=== PATIENT | male | born 1950 | race Caucasian/White ===

== ENCOUNTER 2017-02-13 17:53 | Emergency (ER) | payer OTHER ==
[2017-02-13 18:32] VITALS: BP 141/88
--- NOTE | 2017-02-13 19:01 | RAD ---
INDICATION: Nail puncture wound COMPARISON: None TECHNIQUE: AP, lateral, and oblique views were obtained. FINDINGS: There are no acute bony findings. There is advanced osteoarthritis about the first MTP joint with a mild hallux valgus deformity. There is interphalangeal arthritic change about the great toe as well. There is arthritic change about the midfoot and the tibiotalar joint. There is no foreign body.. IMPRESSION: ARTHRITIC CHANGES. NO ACUTE BONY CHANGE
[2017-02-13] MEDS ORDERED: Tetan/Diph/Pertus SYR(Tdap)* 0.5 ML SYR(BOOSTRIX) use SYR IM ONE (19:09)
--- NOTE | 2017-02-13 20:12 | UC ---
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 ENTERED MIDFOOT. UNSURE OF LAST TETANUS STATUS. - History of Current Complaint Chief Complaint: UCLowerExtremity Stated Complaint: STEPPED ON A NAIL Time Seen by Provider: 02/13/17 18:34 Hx Obtained From: Patient Onset/Duration: Sudden Onset, Lasting Hours, Still Present Severity Initially: Mild Severity Currently: Mild Pain Intensity: 0 Pain Scale Used: 0-10 Numeric Aggravating Factor(s): Standing, Ambulation Able to Bear Weight: Yes - Risk Factors Gout Risk Factors: Negative DVT Risk Factors: Negative Septic Arthritis Risk Factor: Negative - Allergies/Home Medications Allergies/Adverse Reactions: Allergies Allergy/AdvReac Type Severity Reaction Status Date / Time No Known Allergies Allergy Verified 02/13/17 18:33 Home Medications: Home Medications Allopurinol TAB* [Zyloprim 100 MG TAB*] 100 mg PO DAILY 02/13/17 [History Confirmed 02/13/17] PMH/Surg Hx/FS Hx/Imm Hx Previously Healthy: Yes - Surgical History Surgical History: Yes Surgery Procedure, Year, and Place: TONSILECTOMY - Family History Known Family History: Positive: Unknown - pt is adopted - Social History Occupation: Employed Full-time Lives: With Family Alcohol Use: Occasionally Substance Use Type: None Smoking Status (MU): Never Smoked Tobacco Have You Smoked in the Last Year: No - Immunization History Most Recent Tetanus Shot: unknown Review of Systems Constitutional: Negative Skin: Other - PUNCTURE WOUND LEFT FOOT Eyes: Negative ENT: Negative Respiratory: Negative Cardiovascular: Negative Gastrointestinal: Negative Genitourinary: Negative Motor: Negative Neurovascular: Negative Musculoskeletal: Arthralgia - LEFT FOOT, Myalgia - LEFT FOOT Neurological: Negative Psychological: Negative All Other Systems Reviewed And Are Negative: Yes Physical Exam Triage Information Reviewed: Yes Appearance: Well-Appearing, No Pain Distress, Well-Nourished Vital Signs: Initial Vital Signs Temp 97.3 F 02/13/17 18:25 Pulse 80 02/13/17 18:25 Resp 20 02/13/17 18:25 BP 141/88 02/13/17 18:25 Pulse Ox 96 02/13/17 18:25 Vital Signs Reviewed: Yes Eye Exam: Normal ENT Exam: Normal ENT: Positive: Normal ENT inspection, Hearing grossly normal, TMs normal Dental Exam: Normal Neck exam: Normal Neck: Positive: Supple, Nontender, No Lymphadenopathy Respiratory Exam: Normal Respiratory: Positive: Chest non-tender, Lungs clear, Normal breath sounds, No respiratory distress Cardiovascular Exam: Normal Cardiovascular: Positive: RRR, No Murmur, Pulses Normal Abdominal Exam: Normal Abdomen Description: Positive: Nontender, No Organomegaly Musculoskeletal Exam: Normal Neurological Exam: Normal Psychological Exam: Normal Skin: Positive: Other - PUNCTURE WOUND LEFT FOOT Lower Extremity Course/Dx - Differential Dx/Diagnosis Differential Diagnosis/HQI/PQRI: Foreign Body, Fracture (Closed), Infection, Sprain, Strain Provider Diagnoses: LEFT FOOT PUNCTURE WOUND Discharge - Discharge Plan Condition: Stable Disposition: HOME Prescriptions: Ciprofloxacin TAB* [Cipro 500 MG TAB*] 500 mg PO BID #8 tab Patient Education Materials: Puncture Wound (ED) Referrals: Amber Cosme MD [Primary Care Provider] -
== END 2017-02-13 19:20 | disposition home or self-care (01) ==
LOC: UCEAST 17:53
DX: S91.342A Puncture wound with foreign body, left foot, initial encounter (principal); W45.0XXA Nail entering through skin, initial encounter; Z23 Encounter for immunization
CPT/HCPCS: 90471; 90715; 99212; G0463

== ENCOUNTER 2017-05-02 18:36 | Emergency (ER) | payer OTHER ==
[2017-05-02 18:49] VITALS: BP 159/98
--- NOTE | 2017-05-02 19:38 | UC ---
Back Pain HPI - HPI Summary HPI Summary: 66 y/o male PMHX of Gout, HTN presents to the urgent care c/o LF side back pain and LF wrist pain for the past week. 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 Pain is 8/10. Back pain is localized on the left lateral side. LF wrist pain is associated with swelling and radiates to his upper arm. He has been taking some Tylenol with Codeine he bought OTC in [place] w/o any improvement of pain and Indomethacin and Allupironol for his gout. Pt denies urinary or fecal incontinence, saddle anesthesia, numbness or tingling over the lower or upper extremities, fever, SOB, chest pain, N/V/D. urinary symptoms. - History of Current Complaint Chief Complaint: UCBackPain Stated Complaint: BACK AND ARM PAIN Time Seen by Provider: 05/02/17 19:08 Hx Obtained From: Patient Onset/Duration: Gradual Onset, Lasting Weeks - 1 week Timing: Constant, Lasting Days - 1 week Severity Initially: Moderate Severity Currently: Severe Pain Intensity: 8 Pain Scale Used: 0-10 Numeric Back Pain: Is Discrete @ - mid back left side Character: Sharp, Spasmodic Aggravating: Movement, Lifting, Bending Alleviating: Rest Associated Signs And Symptoms: Positive: Swelling, Pain with Weight Bearing. Negative: Fever, Weakness, Numbness - of the left wirst, Abdominal Pain, Flank Pain, Bladder Incontinence, Bowel Incontinence - Risk Factors AAA Risk Factors: Negative TAD Risk Factors: Negative Cauda Equina Risk Factors: Negative Epidural Abscess Risk Factors: Negative - Allergies/Home Medications Allergies/Adverse Reactions: Allergies Allergy/AdvReac Type Severity Reaction Status Date / Time No Known Allergies Allergy Verified 02/13/17 18:33 Home Medications: Home Medications Colchicine* [Colcrys*] 0.6 mg PO DAILY 05/02/17 [History Confirmed 05/02/17] Indomethacin CAP* [Indocin CAP*] 50 mg PO TID PRN 05/02/17 [History Confirmed ] PMH/Surg Hx/FS Hx/Imm Hx Previously Healthy: Yes Other Endocrine History: GOUT Cardiovascular History: Hypertension - Surgical History Surgical History: Yes Surgery Procedure, Year, and Place: TONSILECTOMY - Family History Known Family History: Positive: Unknown - pt is adopted - Social History Occupation: Employed Full-time Lives: With Family Alcohol Use: Daily Substance Use Type: None Smoking Status (MU): Never Smoked Tobacco Have You Smoked in the Last Year: No - Immunization History Most Recent Tetanus Shot: unknown Review of Systems Constitutional: Negative Skin: Negative Eyes: Negative ENT: Negative Respiratory: Negative Cardiovascular: Negative Gastrointestinal: Negative Genitourinary: Negative Motor: Negative Neurovascular: Negative Musculoskeletal: Other: - back pain and LF wrist pain Neurological: Negative Psychological: Negative Is Patient Immunocompromised?: No All Other Systems Reviewed And Are Negative: Yes Physical Exam Triage Information Reviewed: Yes Completion Of Physical Exam Limited Due To: Extremis Appearance: No Pain Distress, Well-Nourished Vital Signs: Initial Vital Signs Temp 99.1 F 05/02/17 18:42 Pulse 59 05/02/17 18:42 Resp 18 05/02/17 18:42 BP 159/98 05/02/17 18:42 Pulse Ox 99 05/02/17 18:42 Vital Signs Reviewed: Yes Eye Exam: Normal Eyes: Positive: Conjunctiva Clear - PERRLA, EOMI, fundi grossly normal ENT Exam: Normal ENT: Positive: Normal ENT inspection, Hearing grossly normal, Pharynx normal, TMs normal Neck exam: Normal Neck: Positive: Supple, Nontender, No Lymphadenopathy Respiratory Exam: Normal Respiratory: Positive: Chest non-tender, Lungs clear, Normal breath sounds Cardiovascular Exam: Normal Cardiovascular: Positive: RRR, No Murmur, Pulses Normal, Brisk Capillary Refill Abdominal Exam: Normal Abdomen Description: Positive: Nontender, No Organomegaly, Soft, CVA Tenderness (L). Negative: CVA Tenderness (R) Bowel Sounds: Positive: Present Musculoskeletal Exam: Normal Musculoskeletal: Positive: Strength Intact, ROM Intact, No Edema, Other: - Wrist : the L wrist is without obvious asymmetry or deformity when compared to the R, warmth to touch with moderate swelling. No bony crepitus . No scaphoid fullness or tenderness to direct palpation or axial load. Decreas ROM due to pain. Motor/sensory function of ulnar, radial, median nerves intact. Ulnar and radial pulses intact. Negative Phalens/Tinels sign . Negative Filkelstein test. BACK: Patient walked into the urgent care room with symmetric ambulation, mild limping, able to bear weight. No signs of trauma, Point tenderness at the lef side of back at the level of T12-L1, , no flank ecchymosis . No sacroiliac notch tenderness, No saddle anesthesia.ROM: limited due to pain. Straight Leg Raise: unable to perform due to pain. Patellar reflexes: brisk, symmetric Muscle strength lower extremities. Dorsiflexion/ plantar flexion of ankles. walk. Lower extremities: Femoral, popliteal, posterior tibial, and dorsalis pedis pulses WNL, sensation WNL Neurological Exam: Normal Neurological: Positive: Alert Psychological Exam: Normal Skin: Positive: Other - Left side of back with 3 lipomas about 1cm in size. mildly tendr to palaption.Movable Back Pain Course/Dx - Course Course Of Treatment: 66 y/o male PMHX of Gout, HTN presents to the urgent care c /o of left side back pain and LF wrist pain for the past week. 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 Pain is 8/10. Back pain is localized on the left lateral side. LF wrist pain is associated with swelling and radiates to his upper arm.He has been taking some Tylenol with Codeine he bought OTC in [place] w/o any improvement of pain and Indomethacin and Allupironol for his gout. Pt denies urinary or fecal incontinence, saddle anesthesia, numbness or tingling over the lower or upper extremities, fever, SOB , chest pain, N/V/D. urinary symptoms. HX obtained. UA ordered:negative. Thoracolumbar X-ray ordered,Impression:Multilevel degenerative changes with osteophyte formation. no changes when compared with CT done in 2016. LF wrist X -say: Degenerative changes with narrowing of the carpal joints. Pt with Degenerative Disc disease , Osteroarthritis and Hx of Gout. Pt given Toradol IM inj and Prednisone 60mg PO for pain. Pt tolerated well IM inj. UA ordered to r/o kidney stones. UA: negative. Pain decrease to 4/10. Pt also has 3 small lipomas on the left side of his back where pain is elecited. Pt Rx Prednisone taper dose, Pt Advised to start taking his Indomethacin PO to alleviate pain. RX Felxeril PO for back spasm, amd Omeprazole PO for GI protection.I discussed all the findings and test results with the patient. Patient was instructed to f/ u with his Orhtopedic Dr Jacobsen for further evaluation and treatment.Pt BP elevated today, Pt advised to decrese salt in his diet , monitor his BP and f/u with his PCP for further management. Plan of care was discussed with the patient and understands and agrees. All questions were answered at patient satisfaction. There were no further complaints or concerns. - Differential Dx/Diagnosis Differential Diagnosis/HQI/PQRI: Arthritis, Cauda Equina Syndrome, Compressive Cord Syndrome, Fracture, Herniated Disc, Renal Colic, Strain, Sprain, Other - GOUT, kodney stone Provider Diagnoses: 1-Degenerative disc disease. 2-Acute back pain. 3-LF wrist pain. 4-Gout. 5-Lipoma. 6-Uncontrolled HTN Discharge - Discharge Plan Condition: Stable Disposition: HOME Prescriptions: Cyclobenzaprine TAB* [Flexeril 10 MG TAB*] 10 mg PO TID PRN #14 tab PRN Reason: Spasms - Back Omeprazole CAP* [Prilosec CAP* 20 MG] 20 mg PO DAILY #30 cap. predniSONE TAB* [Deltasone TAB*] 20 mg PO DAILY #8 tab Patient Education Materials: Osteoarthritis (ED), Gout (ED), Acute Low Back Pain (ED), Degenerative Disc Disease (ED), Lipoma (ED) Referrals: Amber Cosme MD [Primary Care Provider] - 1 Week Jonathan LION,Santy Ramirez [Medical Doctor] - 1 Week Additional Instructions: 1-Please start taking Indometacin TID you have at home directed to alleviate pain and swelling, as well as your Colchicine for your Gout. Take omeprazole Po as indicted for GI protection. 2-Take flexeril PO as directed to alleviate back spasm and the prednisone PO as indicated 3- Please f/u with Orthopedic DR Castillo in 1 week is not improvement of symptoms for further evaluation and treatment. 4- Please f/u witj your PCP for further evaluation and treatment on your gout. 4- Your BP today is elevated, please decrease salt in your diet, monitor your BP , if it continues to be elevated please f/y with your PCP for further management.
[2017-05-02] MEDS ORDERED: Ketorolac INJ* 60 MG/2 ML VIAL IM ONE (20:17)
--- NOTE | 2017-05-02 20:55 | RAD ---
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 TECHNIQUE: 3 views of the thoracic spine were obtained. FINDINGS: On the AP view there is mild curvature of the thoracic and upper lumbar spine, dextroconvex at the T11 level and levoconvex at the L2 level. On the sagittal view the vertebral bodies are appropriately aligned. Degenerative changes include loss of intervertebral disc height at multiple levels as well as osteophyte formation, some bridging. Appearance has not changed substantially when compared to the previous CT examination. IMPRESSION: Multilevel degenerative changes not significantly different from the July 01, 2016 CT examination.
--- NOTE | 2017-05-02 20:58 | RAD ---
INDICATION: Left wrist pain after a landscaping COMPARISON: Similar radiograph dated January 21, 2012 TECHNIQUE: 3 views left wrist. REPORT: Degenerative changes of the left wrist include narrowing of the radiocarpal joint and sclerotic change of the distal articulating surface of the radius. There is bony proliferation at the radial ulnar joint. There is narrowing of the intercarpal and carpometacarpal joints. Degenerative changes of the left thumb trapezium metacarpal joint include sclerotic change and mild bony remodeling of the articulating services. The bones are otherwise intact and appropriately aligned. IMPRESSION: Degenerative changes involving the left wrist as described above, slightly progressed when compared to the January 21, 2012 radiograph. If the patient's symptoms persist, follow-up imaging is recommended.
[2017-05-02] MEDS ORDERED: predniSONE TAB* 20 MG PO ONE (21:21)
[2017-05-02] MEDS ORDERED: Cyclobenzaprine TAB* 10 MG PO ONE (21:21)
== END 2017-05-02 21:45 | disposition home or self-care (01) ==
LOC: UCEAST 18:36
DX: M54.6 Pain in thoracic spine (principal); M51.35 Other intervertebral disc degeneration, thoracolumbar region; M25.532 Pain in left wrist; M10.00 Idiopathic gout, unspecified site; D17.9 Benign lipomatous neoplasm, unspecified; I10 Essential (primary) hypertension
CPT/HCPCS: 72080; 81003; 96372; 99212; A9270-GY; G0463; J1885; J7512

== ENCOUNTER 2017-05-17 06:12 | Emergency (ER) | payer OTHER ==
[2017-05-17] MEDS ORDERED: Famotidine IV* 10 MG/ML 2 ML (20 mg) IV ONE (07:43)
[2017-05-17] MEDS ORDERED: Ondansetron INJ* 2 MG/ML VIAL IV ONE (07:43)
[2017-05-17] MEDS: NS 0.9% 1000 ML* 2,000 ML IV ONE ×2 (08:21→09:39)
--- NOTE | 2017-05-17 08:39 | RAD ---
Indication: Abdominal pain. Flat and upright views of the abdomen demonstrates no free air. Colon is filled with stool. No dilated loops of bowel noted. IMPRESSION: No free air or obstruction is noted.
[2017-05-17 08:48] LABS: Hematocrit 45 % (42-52); Hemoglobin 15.9 g/dl (14.0-18.0); Mean Corpuscular HGB Conc 36 g/dl (31-36); Mean Corpuscular Hemoglobin 33 pg (27-31); Mean Corpuscular Volume 93 fL (80-94); Mean Platelet Volume 8 um3 (7.4-10.4); Red Blood Count 4.81 10^6/ul (4.0-5.4); Red Cell Distribution Width 12 % (10.5-15); White Blood Count 8.7 10^3/ul (3.5-10.8)
[2017-05-17 09:02] LABS: Troponin I 0.01 ng/mL (<0.04)
[2017-05-17 09:03] LABS: Urine Bacteria Absent (Absent); Urine Bilirubin Negative (Negative); Urine Glucose Negative (Negative); Urine Nitrite Negative (Negative)
[2017-05-17 09:04] LABS: Albumin 3.8 g/dL (3.2-5.2); BUN/Creatinine Ratio 13.3 (8-20); C Reactive Protein 78.73 mg/L (< 5.00); Calcium 9.8 mg/dL (8.6-10.3); EGFR African American 72.8 (>60); EGFR Non-African American 56.6 (>60); Globulin 3.3 g/dL (2-4); Magnesium 1.8 mg/dL (1.9-2.7); Total Bilirubin 0.7 mg/dL (0.2-1.0); Total Protein 7.1 g/dL (6.4-8.9)
[2017-05-17] MEDS ORDERED: NS 0.9% 1000 ML* 1,000 ML IV ONE (10:08)
[2017-05-17] MEDS ORDERED: Magnesium Oxide TAB* 400 MG PO ONE (15:09)
[2017-05-17] MEDS ORDERED: Magnesium Oxide TAB* 400 MG ONE (15:16)
[2017-05-17 15:21] VITALS: BP 130/66
--- NOTE | 2017-05-17 16:01 | ED ---
Leah Cintron Alfonso, scribed for Leonides Love MD on 05/17/17 at 0734 . GI/ HPI - HPI Summary HPI Summary: This patient is a 66 year old M presenting to [facility] accompanied by with a chief complaint of diarrhea since 5 days ago. The CC is described as water coming out of me no blood and no mucous. The patient rates the pain 0/10 in severity. Symptoms aggravated by drinking water. Symptoms alleviated by nothing. Patient reports nausea, loss of appetite, weight loss (15 pounds in the last 5 days), and bilateral foot tingling. Patient denies abdominal pain. He traveled to [place] two weeks ago. He denies recent abx use. - History of Current Complaint Chief Complaint: EDGeneral Time Seen by Provider: 05/17/17 07:11 Stated Complaint: UNABLE TO EAT/DRINK Hx Obtained From: Patient Onset/Duration: Started Days Ago - 5, Still Present Timing: Constant Current Severity: Mild Pain Intensity: 0 - /10 Associated Signs and Symptoms: Positive: Other: - Patient reports nausea, loss of appetite, weight loss (15 pounds in the last 5 days), and bilateral foot tingling. Patient denies abdominal pain. Aggravating Factor(s): Liquids Alleviating Factor(s): Nothing - Allergy/Home Medications Allergies/Adverse Reactions: Allergies Allergy/AdvReac Type Severity Reaction Status Date / Time No Known Allergies Allergy Verified 05/17/17 06:22 PMH/Surg Hx/FS Hx/Imm Hx Endocrine/Hematology History: Denies: Hx Diabetes, Hx Thyroid Disease Cardiovascular History: Reports: Hx Hypertension Respiratory History: Denies: Hx Asthma, Hx Chronic Obstructive Pulmonary Disease (COPD) GI History: Denies: Hx Ulcer Musculoskeletal History: Reports: Hx Scoliosis Opthamlomology History: Denies: Hx Legally Blind EENT History: Denies: Hx Deafness - Surgical History Surgery Procedure, Year, and Place: TONSILECTOMY Infectious Disease History: No Infectious Disease History: Reports: Traveled Outside the [place] in Last 30 Days - [place] Denies: Hx Clostridium Difficile, Hx Hepatitis, Hx Human Immunodeficiency Virus (HIV), Hx of Known/Suspected MRSA, Hx Shingles, Hx Tuberculosis, Hx Known/ Suspected VRE, Hx Known/Suspected VRSA, History Other Infectious Disease - Family History Known Family History: Positive: Unknown - pt is adopted - Social History Alcohol Use: Daily Substance Use Type: Reports: None Smoking Status (MU): Never Smoked Tobacco Have You Smoked in the Last Year: No Review of Systems Positive: Diarrhea, Nausea, Other - loss of appetite, weight loss (15 pounds in the last 5 days). Negative: Abdominal Pain Neurological: Other - bilateral foot tingling All Other Systems Reviewed And Are Negative: Yes Physical Exam - Summary Physical Exam Summary: VITAL SIGNS: Reviewed. GENERAL: Patient is an elderly, dehydrated, and nourished male who is lying comfortable in the stretcher. Patient is not in any acute respiratory distress. HEAD AND FACE: No signs of trauma. No ecchymosis, hematomas or skull depressions. No sinus tenderness. EYES: PERRLA, EOMI x 2, No injected conjunctiva, no nystagmus. EARS: Hearing grossly intact. Ear canals and tympanic membranes are within normal limits. MOUTH: Oropharynx within normal limits. Dry oral mucous membranes. NECK: Supple, trachea is midline, no adenopathy, no JVD, no carotid bruit, no c- spine tenderness, neck with full ROM. CHEST: Symmetric, no tenderness at palpation LUNGS: Clear to auscultation bilaterally. No wheezing or crackles. CVS: Regular rate and rhythm, S1 and S2 present, no murmurs or gallops appreciated. ABDOMEN: Soft, non-tender. No signs of distention. No rebound no guarding, and no masses palpated. Bowel sounds are hyperactive. EXTREMITIES: FROM in all major joints, no edema, no cyanosis or clubbing. NEURO: Alert and oriented x 3. No acute neurological deficits. Speech is normal and follows commands. SKIN: Dry and warm Triage Information Reviewed: Yes Vital Signs On Initial Exam: Initial Vitals Temp Pulse Resp BP Pulse Ox 98.3 F 87 14 118/79 97 05/17/17 06:15 05/17/17 06:15 05/17/17 06:15 05/17/17 06:15 05/17/17 06:15 Vital Signs Reviewed: Yes - [place] Coma Scale Coma Scale Total: 15 Diagnostics - Vital Signs Vital Signs Temp Pulse Resp BP Pulse Ox 05/17/17 06:46 68 96 05/17/17 06:44 137/77 05/17/17 06:15 98.3 F 87 14 118/79 97 - Laboratory Lab Results: Lab Results 05/17/17 05/17/17 05/17/17 Range/Units 08:28 08:28 08:28 WBC 8.7 (3.5-10.8) 10^3/ul RBC 4.81 (4.0-5.4) 10^6/ul Hgb 15.9 (14.0-18.0) g/dl Hct 45 (42-52) % MCV 93 (80-94) fL MCH 33 H (27-31) pg MCHC 36 (31-36) g/dl RDW 12 (10.5-15) % Plt Count 199 (150-450) 10^3/ul MPV 8 (7.4-10.4) um3 Neut % (Auto) 67.2 (38-83) % Lymph % (Auto) 19.6 L (25-47) % Nobles % (Auto) 12.6 H (1-9) % Eos % (Auto) 0.2 (0-6) % Baso % (Auto) 0.4 (0-2) % Absolute Neuts (auto) 5.8 (1.5-7.7) 10^3/ul Absolute Lymphs (auto) 1.7 (1.0-4.8) 10^3/ul Absolute Monos (auto) 1.1 H (0-0.8) 10^3/ul Absolute Eos (auto) 0 (0-0.6) 10^3/ul Absolute Basos (auto) 0 (0-0.2) 10^3/ul Absolute Nucleated RBC 0.01 10^3/ul Nucleated RBC % 0.1 Sodium 135 (133-145) mmol/L Potassium 4.0 (3.5-5.0) mmol/L Chloride 104 (101-111) mmol/L Carbon Dioxide 22 (22-32) mmol/L Anion Gap 9 (2-11) mmol/L BUN 17 (6-24) mg/dL Creatinine 1.28 H (0.67-1.17) mg/dL Est GFR ( Amer) 72.8 (>60) Est GFR (Non-Af Amer) 56.6 (>60) BUN/Creatinine Ratio 13.3 (8-20) Glucose 114 H (70-100) mg/dL Lactic Acid (0.5-2.0) mmol/L Calcium 9.8 (8.6-10.3) mg/dL Magnesium 1.8 L (1.9-2.7) mg/dL Total Bilirubin 0.70 (0.2-1.0) mg/dL AST 16 (13-39) U/L ALT 10 (7-52) U/L Alkaline Phosphatase 79 (34-104) U/L Troponin I 0.01 (<0.04) ng/mL C-Reactive Protein 78.73 H (< 5.00) mg/L B-Natriuretic Peptide 38 ( - 100) pg/mL Total Protein 7.1 (6.4-8.9) g/dL Albumin 3.8 (3.2-5.2) g/dL Globulin 3.3 (2-4) g/dL Albumin/Globulin Ratio 1.2 (1-3) Amylase 37 (29-103) U/L Lipase 44 (11.0-82.0) U/L Urine Color Urine Appearance Urine pH (5-9) Ur Specific [place] (1.010-1.030) Urine Protein (Negative) Urine Ketones (Negative) Urine Blood (Negative) Urine Nitrate (Negative) Urine Bilirubin (Negative) Urine Urobilinogen (Negative) Ur Leukocyte Esterase (Negative) Urine WBC (Auto) (Absent) Urine RBC (Auto) (Absent) Ur Squamous Epith Cells (Absent) Urine Bacteria (Absent) Hyaline Casts (Absent) Urine Glucose (Negative) 05/17/17 05/17/17 Range/Units 08:28 08:28 WBC (3.5-10.8) 10^3/ul RBC (4.0-5.4) 10^6/ul Hgb (14.0-18.0) g/dl Hct (42-52) % MCV (80-94) fL MCH (27-31) pg MCHC (31-36) g/dl RDW (10.5-15) % Plt Count (150-450) 10^3/ul MPV (7.4-10.4) um3 Neut % (Auto) (38-83) % Lymph % (Auto) (25-47) % Nobles % (Auto) (1-9) % Eos % (Auto) (0-6) % Baso % (Auto) (0-2) % Absolute Neuts (auto) (1.5-7.7) 10^3/ul Absolute Lymphs (auto) (1.0-4.8) 10^3/ul Absolute Monos (auto) (0-0.8) 10^3/ul Absolute Eos (auto) (0-0.6) 10^3/ul Absolute Basos (auto) (0-0.2) 10^3/ul Absolute Nucleated RBC 10^3/ul Nucleated RBC % Sodium (133-145) mmol/L Potassium (3.5-5.0) mmol/L Chloride (101-111) mmol/L Carbon Dioxide (22-32) mmol/L Anion Gap (2-11) mmol/L BUN (6-24) mg/dL Creatinine (0.67-1.17) mg/dL Est GFR ( Amer) (>60) Est GFR (Non-Af Amer) (>60) BUN/Creatinine Ratio (8-20) Glucose (70-100) mg/dL Lactic Acid 1.4 (0.5-2.0) mmol/L Calcium (8.6-10.3) mg/dL Magnesium (1.9-2.7) mg/dL Total Bilirubin (0.2-1.0) mg/dL AST (13-39) U/L ALT (7-52) U/L Alkaline Phosphatase (34-104) U/L Troponin I (<0.04) ng/mL C-Reactive Protein (< 5.00) mg/L B-Natriuretic Peptide ( - 100) pg/mL Total Protein (6.4-8.9) g/dL Albumin (3.2-5.2) g/dL Globulin (2-4) g/dL Albumin/Globulin Ratio (1-3) Amylase (29-103) U/L Lipase (11.0-82.0) U/L Urine Color Aranza Urine Appearance Cloudy Urine pH 5.0 (5-9) Ur Specific [place] 1.021 (1.010-1.030) Urine Protein 1+(30 mg/dl) H (Negative) Urine Ketones Trace H (Negative) Urine Blood Negative (Negative) Urine Nitrate Negative (Negative) Urine Bilirubin Negative (Negative) Urine Urobilinogen Negative (Negative) Ur Leukocyte Esterase Negative (Negative) Urine WBC (Auto) Trace(0-5/hpf) (Absent) Urine RBC (Auto) Trace(0-2/hpf) (Absent) Ur Squamous Epith Cells Present H (Absent) Urine Bacteria Absent (Absent) Hyaline Casts Present H (Absent) Urine Glucose Negative (Negative) Result Diagrams: 05/17/17 08:28 05/17/17 08:28 Lab Statement: Any lab studies that have been ordered have been reviewed, and results considered in the medical decision making process. - Radiology Abdomen X-Ray Radiology Interpretation Completed By: Radiologist - No free air or obstruction is noted. ED physician has reviewed this radiology report and agrees. - EKG 0814 Cardiac Rate: NL - BPM 65 EKG Rhythm: Sinus Rhythm EKG Interpretation: No ST elevation Re-Evaluation - Re-Evaluation First Eval Re-Evaluation Time: 11:17 Change: Improved Comment: Patient is feeling better. GIGU Course/Dx - Course Assessment/Plan: This patient is a 66 year old M presenting to [facility] accompanied by with a chief complaint of diarrhea since 5 days ago. The CC is described as water coming out of me no blood and no mucous. The patient rates the pain 0/10 in severity. Symptoms aggravated by drinking water. Symptoms alleviated by nothing. Patient reports nausea, loss of appetite, weight loss (15 pounds in the last 5 days), and bilateral foot tingling. Patient denies abdominal pain. He traveled to [place] two weeks ago. He denies recent abx use. An EKG at 0814 reveals NSR at 65 BPM. Abdomen X-ray reveals No free air or obstruction is noted. ED physician has reviewed this radiology report and agrees. Test results with no significant abnormalities except for creatinine of 1.28, possibly secondary to dehydration. Magnesium of 1.8 for which he was given magnesium PO. CRP of 78.7. Urinalysis negative for UTI. C Diff. is negative. Stool culture is pending. In the ED course the patient was given 3 liter IV fluid, Pepcid, and Zofran and his symptoms have resolved. He had one episode of loose stool, but he reports feeling much better. He is able to tolerate PO without nausea and vomiting. I discussed my findings, test results, and finding with the patient. He was instructed to return to the ED if he develops fever, chills, nausea, vomiting. He understands and agrees. The patient is hemodynamically stable, alert and oriented x3. - Diagnoses Differential Diagnoses - Male: Diarrhea, Esophagitis/Gastritis, Gastroenteritis (Bacterial), Gastroenteritis (Viral), Urinary Tract Infection Provider Diagnoses: Nausea vomiting and diarrhea Discharge - Discharge Plan Condition: Stable Disposition: HOME Prescriptions: Ondansetron ODT TAB* [Zofran 4 MG Odt TAB*] 4 mg PO Q6H PRN #10 tab.odt PRN Reason: Vomiting Patient Education Materials: Acute Nausea and Vomiting (ED), Acute Diarrhea (ED ) Referrals: Amber Cosme MD [Primary Care Provider] - 3 Days Additional Instructions: RETURN TO THE EMERGENCY DEPARTMENT FOR CHANGING OR WORSENING SYMPTOMS. The documentation as recorded by the Leah das Alfonso accurately reflects the service I personally performed and the decisions made by Ivan goel Walter, MD.
--- NOTE | 2017-05-19 09:45 | ED ---
Progress - Progress Note Progress Note: Pt's stool cx reveals campylobacter jejuni. Pt reports he's a vegetarian who eats fish - had an undercooked piece of salmon last week which may have triggered this. Has had diarrhea x 6 days. Denies fever, chills, hematochezia, mucous stools, extraintestinal infections. He feels a little better today however still has urgency which he feels may be worse. Admits he's been drinking miriam for nausea daily and kimchee broth in chicken soup. Miriam helps nausea better than zofran and broth feels "good in my stomach". He also has some hand aching since stopping gout medication d/t need to be hydrated while taking. Since he was not able to drink large amounts of water w/ diarrhea , N/V he stopped but restarted colchicine yesterday. Hand is not worse and no redness, fever, or exquisite tenderness - does not feel like a gout flair up. Explained colchicine may increase stools and that this and/or miriam (a digestive agent) may causing his urgency which started today. He has been taking probiotics per PCP - seems to be well with these. W/o danger s/sx, will refrain from anbx tx at this time however pt will keep in touch with PCP and will return to ED is danger s/sx present and/or if he feels dehydrated. Encouraged electrolyte rich beverages to help replace them and prevent bowel spasm. Pt and agree w/ plan. Re-Evaluation - Re-Evaluation First Eval Re-Evaluation Time: 11:17 Change: Improved Comment: Patient is feeling better. Course/Dx - Diagnoses Provider Diagnoses: Nausea vomiting and diarrhea
== END 2017-05-17 15:20 | disposition home or self-care (01) ==
LOC: ED 06:12
DX: R11.2 Nausea with vomiting, unspecified (principal); R19.7 Diarrhea, unspecified; R63.0 Anorexia
CPT/HCPCS: 36415; 74020; 80053; 81003; 81015; 82150; 83605; 83630; 83690; 83735; 83880; 84484; 85025; 86140; 87045; 87046; 87077; 87493; 87899; 93005; 96374; 96375; 99284; J2405

== ENCOUNTER 2017-07-02 12:56 | Inpatient (IN) | payer OTHER ==
[2017-07-02] MEDS ORDERED: NS 0.9% 1000 ML* 1,000 ML IV SCH (14:00)
[2017-07-02 14:08] LABS: Hematocrit 39 % (42-52); Hemoglobin 13.3 g/dl (14.0-18.0); Mean Corpuscular HGB Conc 34 g/dl (31-36); Mean Corpuscular Hemoglobin 31 pg (27-31); Mean Corpuscular Volume 91 fL (80-94); Mean Platelet Volume 7 um3 (7.4-10.4); Red Blood Count 4.24 10^6/ul (4.0-5.4); Red Cell Distribution Width 13 % (10.5-15); White Blood Count 12.9 10^3/ul (3.5-10.8)
[2017-07-02 14:23] LABS: Albumin 3.4 g/dL (3.2-5.2); BUN/Creatinine Ratio 17.8 (8-20); C Reactive Protein 261.35 mg/L (< 5.00); Calcium 10.2 mg/dL (8.6-10.3); EGFR African American 109.3 (>60); Globulin 3.8 g/dL (2-4); Potassium 3.8 mmol/L (3.5-5.0); Total Bilirubin 0.6 mg/dL (0.2-1.0); Total Protein 7.2 g/dL (6.4-8.9); Uric Acid 4.5 mg/dL (4.4-7.6)
--- NOTE | 2017-07-02 14:42 | RAD ---
INDICATION: Extremity edema COMPARISON: None TECHNIQUE: An AP portable view obtained at 1426 hours is submitted. The images apical lordotic in positioning FINDINGS: Bones/Soft Tissues: There are no acute bony findings. Cardiomediastinal: The cardiomediastinal silhouette is normal. Lungs: There are no infiltrates. Pleura: There are no pleural effusions. Other: None IMPRESSION: NO ACTIVE DISEASE. NO VASCULAR CONGESTIVE FINDINGS.
[2017-07-02 15:10] LABS: Erythrocyte Sed Rate 105 mm/Hr (0-20)
[2017-07-02] MEDS ORDERED: Cefepime(*) 2 GM in NS 0.9% 50 ML* 50 ML IVPB ONE (15:12)
--- NOTE | 2017-07-02 16:09 | RAD ---
INDICATION: Left calf swelling. COMPARISON: There are no prior studies available for comparison. TECHNIQUE: Multiple real-time, color flow and Doppler tracings of the left lower extremity were obtained. FINDINGS: The common femoral, femoral, profunda femoral and popliteal veins all demonstrate normal compressibility, augmentation with compression and phasic response with respiration. There is venous stasis within the left proximal femoral and profunda femoral veins. The posterior tibial and peroneal veins demonstrate normal compressibility and augmentation with compression. There is a Damico's cyst present measuring 8.2 x 1.9 x 4.9 cm. IMPRESSION: 1. NO EVIDENCE FOR DEEP VENOUS THROMBOSIS. 2. DAMICO CYST.
[2017-07-02] MEDS ORDERED: Ondansetron INJ* 2 MG/ML VIAL IV PRN (16:59)
[2017-07-02] MEDS ORDERED: Ketorolac INJ* 30 MG/ML 1 ML VIAL IV PUSH PRN (16:59)
--- NOTE | 2017-07-02 18:56 | RAD ---
INDICATION: Right hand swelling. TECHNIQUE: 2 views of the right hand were obtained. FINDINGS: There is mild diffuse soft tissue swelling present. No fracture or significant focal osseous abnormality is seen. There is mild osteoarthritic change in the metacarpal phalangeal, proximal and distal interphalangeal joints. IMPRESSION: SOFT TISSUE SWELLING.
--- NOTE | 2017-07-02 18:57 | RAD ---
INDICATION: Left hand swelling. COMPARISON: Comparison is made with a prior x-ray study of the left hand from January 21, 2012. TECHNIQUE: 2 views of the left hand were obtained. FINDINGS: There is soft tissue swelling present along the dorsal aspect of the hand adjacent to the metacarpal bones and within the fingers. There is erosive change present in the third proximal interphalangeal joint likely related to an inflammatory arthropathy although a septic arthritis cannot be excluded. There is also mild to moderate osteoarthritic change in the metacarpal phalangeal and distal interphalangeal joints. IMPRESSION: SOFT TISSUE SWELLING. IN ADDITION THERE IS EROSIVE CHANGE IN THE THIRD PROXIMAL INTERPHALANGEAL JOINT LIKELY SECONDARY TO AN INFLAMMATORY ARTHROPATHY ALTHOUGH AN SEPTIC ARTHRITIS CANNOT BE EXCLUDED.
[2017-07-02 19:27] LABS: EGFR African American 106.5 (>60); EGFR Non-African American 82.8 (>60)
[2017-07-02] MEDS: Acetaminophen TAB* 325 MG PO PRN (19:47)
[2017-07-02] MEDS: NS 0.9% 1000 ML* 1,000 ML IV SCH (20:36)
[2017-07-02] MEDS: methylPREDNISolone SOD 40 MG* 1 ML VIAL IV SCH (20:47)
--- NOTE | 2017-07-02 21:10 | ED ---
Leah Cintron Alfonso, scribed for Tony Schneider MD on 07/02/17 at 1345 . Lower Extremity - HPI Summary HPI Summary: This patient is a 66 year old M BIBA to [facility] accompanied by female with a chief complaint of bilateral LE, worse in the LLE, pain and swelling since one week ago. He was using leech therapy for a kimball cyst. The patient rates the pain 7/10 in severity. Symptoms alleviated by rest. Patient reports fever, diffuse muscle spasms, and arthralgia. Patient denies lightheadedness, CP, SOB, abdominal pain, diarrhea, and dysuria. - History of Current Complaint Chief Complaint: EDExtremityLower Stated Complaint: JOINT PAIN AND SWELLING Time Seen by Provider: 07/02/17 13:39 Hx Obtained From: Patient Onset of Pain: Prior to Arrival Onset/Duration: Still Present Severity Currently: Moderate Pain Intensity: 7 Pain Scale Used: 0-10 Numeric Timing: Constant Location: Other - bilateral LE, worse in the LLE, pain and swelling Associated Signs And Symptoms: Positive: Other - fever, diffuse muscle spasms, and arthralgia. Patient denies lightheadedness, CP, SOB, abdominal pain, diarrhea, and dysuria. Alleviating Factor(s): Rest - Allergies/Home Medications Allergies/Adverse Reactions: Allergies Allergy/AdvReac Type Severity Reaction Status Date / Time No Known Allergies Allergy Verified 05/17/17 06:22 PMH/Surg Hx/FS Hx/Imm Hx Endocrine/Hematology History: Denies: Hx Diabetes, Hx Thyroid Disease Cardiovascular History: Reports: Hx Hypertension Respiratory History: Denies: Hx Asthma, Hx Chronic Obstructive Pulmonary Disease (COPD) GI History: Denies: Hx Ulcer Musculoskeletal History: Reports: Hx Scoliosis Sensory History: Denies: Hx Legally Blind, Hx Deafness Opthamlomology History: Denies: Hx Legally Blind - Surgical History Surgery Procedure, Year, and Place: TONSILECTOMY Infectious Disease History: No Infectious Disease History: Denies: Hx Clostridium Difficile, Hx Hepatitis, Hx Human Immunodeficiency Virus (HIV), Hx of Known/Suspected MRSA, Hx Shingles, Hx Tuberculosis, Hx Known/ Suspected VRE, Hx Known/Suspected VRSA, History Other Infectious Disease, Traveled Outside the [place] in Last 30 Days - Family History Known Family History: Positive: Unknown - pt is adopted - Social History Alcohol Use: Daily Substance Use Type: Reports: None Smoking Status (MU): Never Smoked Tobacco Have You Smoked in the Last Year: No Review of Systems Positive: Fever Negative: Chest Pain Negative: Shortness Of Breath Negative: Abdominal Pain, Diarrhea Negative: dysuria Positive: Other - bilateral LE, worse in the LLE, pain and swelling, diffuse muscle spasms, and arthralgia Neurological: Other - Negative lightheadedness All Other Systems Reviewed And Are Negative: Yes Physical Exam - Summary Physical Exam Summary: General: well-appearing, no pain distress Skin: warm, color reflects adequate perfusion, dry, Left hand erythema Head: normal Eyes: EOMI, HUA ENT: normal Neck: supple, nontender Respiratory: CTA, breath sounds present Cardiovascular: RRR Abdomen: soft, nontender Bowel: present Musculoskeletal: Left upper calf at the lateral aspect is firm, tender to palpation, and erythema. Diffuse bilateral LE and UE edema, worse at LLE and LUE. Neurological: normal, sensory/motor intact, A&O x3 Psychological: affect/mood appropriate Triage Information Reviewed: Yes Vital Signs On Initial Exam: Initial Vitals Temp Pulse Resp BP Pulse Ox 97.8 F 82 17 129/76 97 07/02/17 12:58 07/02/17 12:58 07/02/17 12:58 07/02/17 12:58 07/02/17 12:58 Vital Signs Reviewed: Yes - [place] Coma Scale Coma Scale Total: 15 Diagnostics - Vital Signs Vital Signs Temp Pulse Resp BP Pulse Ox 07/02/17 12:58 97.8 F 82 17 129/76 97 - Laboratory Lab Results: Lab Results 07/02/17 07/02/17 07/02/17 Range/Units 13:55 13:55 13:55 WBC (3.5-10.8) 10^3/ul RBC (4.0-5.4) 10^6/ul Hgb (14.0-18.0) g/dl Hct (42-52) % MCV (80-94) fL MCH (27-31) pg MCHC (31-36) g/dl RDW (10.5-15) % Plt Count (150-450) 10^3/ul MPV (7.4-10.4) um3 Neut % (Auto) (38-83) % Lymph % (Auto) (25-47) % Ogle % (Auto) (1-9) % Eos % (Auto) (0-6) % Baso % (Auto) (0-2) % Absolute Neuts (auto) (1.5-7.7) 10^3/ul Absolute Lymphs (auto) (1.0-4.8) 10^3/ul Absolute Monos (auto) (0-0.8) 10^3/ul Absolute Eos (auto) (0-0.6) 10^3/ul Absolute Basos (auto) (0-0.2) 10^3/ul Absolute Nucleated RBC 10^3/ul Nucleated RBC % ESR (0-20) mm/Hr INR (Anticoag Therapy) 1.21 H (0.89-1.11) APTT 28.3 (26.0-36.3) seconds Sodium 132 L (133-145) mmol/L Potassium 3.8 (3.5-5.0) mmol/L Chloride 99 L (101-111) mmol/L Carbon Dioxide 24 (22-32) mmol/L Anion Gap 9 (2-11) mmol/L BUN 16 (6-24) mg/dL Creatinine 0.90 (0.67-1.17) mg/dL Est GFR ( Amer) 109.3 (>60) Est GFR (Non-Af Amer) 85.0 (>60) BUN/Creatinine Ratio 17.8 (8-20) Glucose 105 H (70-100) mg/dL Lactic Acid (0.5-2.0) mmol/L Uric Acid 4.5 (4.4-7.6) mg/dL Calcium 10.2 (8.6-10.3) mg/dL Total Bilirubin 0.60 (0.2-1.0) mg/dL AST 13 (13-39) U/L ALT 10 (7-52) U/L Alkaline Phosphatase 86 (34-104) U/L C-Reactive Protein 261.35 H (< 5.00) mg/L B-Natriuretic Peptide 58 ( - 100) pg/mL Total Protein 7.2 (6.4-8.9) g/dL Albumin 3.4 (3.2-5.2) g/dL Globulin 3.8 (2-4) g/dL Albumin/Globulin Ratio 0.9 L (1-3) 07/02/17 07/02/17 Range/Units 13:55 13:55 WBC 12.9 H (3.5-10.8) 10^3/ul RBC 4.24 (4.0-5.4) 10^6/ul Hgb 13.3 L (14.0-18.0) g/dl Hct 39 L (42-52) % MCV 91 (80-94) fL MCH 31 (27-31) pg MCHC 34 (31-36) g/dl RDW 13 (10.5-15) % Plt Count 289 (150-450) 10^3/ul MPV 7 L (7.4-10.4) um3 Neut % (Auto) 74.7 (38-83) % Lymph % (Auto) 13.9 L (25-47) % Ogle % (Auto) 10.8 H (1-9) % Eos % (Auto) 0.2 (0-6) % Baso % (Auto) 0.4 (0-2) % Absolute Neuts (auto) 9.6 H (1.5-7.7) 10^3/ul Absolute Lymphs (auto) 1.8 (1.0-4.8) 10^3/ul Absolute Monos (auto) 1.4 H (0-0.8) 10^3/ul Absolute Eos (auto) 0 (0-0.6) 10^3/ul Absolute Basos (auto) 0.1 (0-0.2) 10^3/ul Absolute Nucleated RBC 0 10^3/ul Nucleated RBC % 0 ESR 105 H (0-20) mm/Hr INR (Anticoag Therapy) (0.89-1.11) APTT (26.0-36.3) seconds Sodium (133-145) mmol/L Potassium (3.5-5.0) mmol/L Chloride (101-111) mmol/L Carbon Dioxide (22-32) mmol/L Anion Gap (2-11) mmol/L BUN (6-24) mg/dL Creatinine (0.67-1.17) mg/dL Est GFR ( Amer) (>60) Est GFR (Non-Af Amer) (>60) BUN/Creatinine Ratio (8-20) Glucose (70-100) mg/dL Lactic Acid 1.1 (0.5-2.0) mmol/L Uric Acid (4.4-7.6) mg/dL Calcium (8.6-10.3) mg/dL Total Bilirubin (0.2-1.0) mg/dL AST (13-39) U/L ALT (7-52) U/L Alkaline Phosphatase (34-104) U/L C-Reactive Protein (< 5.00) mg/L B-Natriuretic Peptide ( - 100) pg/mL Total Protein (6.4-8.9) g/dL Albumin (3.2-5.2) g/dL Globulin (2-4) g/dL Albumin/Globulin Ratio (1-3) Result Diagrams: 07/02/17 13:55 07/02/17 18:19 Lab Statement: Any lab studies that have been ordered have been reviewed, and results considered in the medical decision making process. - Radiology CXR Radiology Interpretation Completed By: Radiologist - NO ACTIVE DISEASE. NO VASCULAR CONGESTIVE FINDINGS. ED physician has reviewed this radiology report and agrees. - Additional Comments Diagnostic Additional Comments: Venous Doppler Study reveals, per radiologist, 1. NO EVIDENCE FOR DEEP VENOUS THROMBOSIS. 2. KIMBALL CYST. ED physician has reviewed this radiology report and agrees. Lower Extremity Course/Dx - Course Course Of Treatment: ADMIT HOSPITALIST. NO CRITICAL CARE TIME. - Diagnoses Provider Diagnoses: Cellulitis of left leg, Edema - Physician Notifications Discussed Care Of Patient With: Susan Thomson Time Discussed With Above Provider: 15:13 Instructed by Provider To: Other - Consulted Dr. Thomson (hospitalist) who agrees to admit. Discharge - Discharge Plan Condition: Stable Disposition: ADMITTED TO [facility] documentation as recorded by the Leah das Alfonso accurately reflects the service I personally performed and the decisions made by me, Tony Schneider MD.
--- NOTE | 2017-07-02 21:14 | HP ---
CC: Dr. Amber Cosme * HISTORY AND PHYSICAL: DATE OF ADMISSION: 07/02/17 PRIMARY CARE PROVIDER: Dr. Amber Cosme. ATTENDING PHYSICIAN WHILE IN THE HOSPITAL: Dr. Susan Singh * (report dictated by Nathan Hinkle NP). CHIEF COMPLAINT: 1. Left knee pain. 2. Bilateral wrist pain and joint stiffness. HISTORY OF PRESENTING ILLNESS: Mr. Agustin is a 66-year-old male patient, he has a long-standing history of gout for 25 years and a history of hypertension and arthritis coming into our ER today saying that over the last last couple of days, he has had progressive worsening swelling of his hands, wrists, in addition to this also having left knee pain and right knee pain and he just feels like his entire body feels stiff. He is having hard time mobilizing and ambulating because of pain and stiffness. He says if anybody goes to touch his hands or his wrists or his elbows, any of his extremities, he is in extreme discomfort. He says that for the last 25 years, he has been trying to manage his gout with holistic medicine, recently did start taking allopurinol. He was concerned though because of the discomfort, he sought care with his primary, who was concerned that he may have an infection particularly the left knee that was his initial complaint. He did have leech therapy there. He was being treated with Bactrim, Keflex. Despite this though, he still continued to have worsening joint pain, aching, low-grade fevers. He was not getting any better, so he came into our ER today. He denied having any chest pain or shortness of breath. He does state that he is not having any pain in his hips, but does have a significant amount of pain in his knees, his elbows, wrists, fingers, along with erythema and tenderness particularly with any type of palpation. He came to our ER, was evaluated by Dr. Schneider. There was concern for possible infection and the hospitalist service was asked to evaluate for admission. PAST MEDICAL HISTORY: Significant for: 1. Gout. 2. Hypertension. 3. Arthritis. PAST SURGICAL HISTORY: He has had knee arthroscopies. MEDICATIONS: The home meds according to the list that we were able to obtain include: 1. Diphenhydramine 2% topical b.i.d. as needed. 2. Indomethacin 50 mg p.o. t.i.d. as needed. 3. Glucosamine chondroitin 1 tablet p.o. daily. 4. Colchicine 0.6 mg p.o. daily as needed. 5. Magnesium 400 mg daily. 6. Echinacea 1 capsule daily. 7. Vitamin B12 500 mcg daily. 8. Bactrim 1 tablet p.o. b.i.d. 9. Cefdinir 300 mg p.o. b.i.d. 10. Losartan 50 mg p.o. daily. 11. Allopurinol 100 mg p.o. b.i.d. ALLERGIES TO MEDICATIONS: Include SHELLFISH. FAMILY HISTORY: He is adopted. SOCIAL HISTORY: He does not smoke. He does not drink. Surrogate decision maker is his , Jaqui. REVIEW OF SYSTEMS: There is a fever noted of 100.4. Denied having any significant weight change. No double vision. No ear discharge. Denied having any rhinorrhea. No sore throat. No thyroid enlargement. Denied having any chest pain. There was no orthopnea, no nocturnal dyspnea. Denied having any abdominal pain. There was no nausea, no vomiting. No dysuria, there was no frequency. No seizure, no loss of consciousness. No pruritus and no skin ulcerations. Review of 14 systems completed, all others were negative. PHYSICAL EXAMINATION GENERAL: At this time, Mr. Agustin is a 66-year-old male patient, he is sitting in the ER stretcher, does not appear to be in any acute distress. He is awake and he is alert. VITAL SIGNS: Reveal blood pressure 129/76, pulse 82, respirations 17, O2 sat 97 %, temperature 97.8. HEENT: Head is atraumatic and normocephalic. Eyes: EOMs are intact. Sclerae are anicteric and not pale. Throat: Oral mucosa appears to be moist. No oropharyngeal erythema. NECK: Supple. LUNGS: Clear to auscultation. No wheezes, rales, or rhonchi. HEART: Sounds S1, S2. Regular rate and rhythm. No murmurs, rubs, or gallops. ABDOMEN: Soft, flat, nontender. Bowel sounds present. EXTREMITIES: Pulses were 2+ throughout. He does have significant amount of erythema noted particularly his left wrist. There is erythema noted to his left DIP joints to his 4 fingers and to his proximal joints as well. He has erythema to that wrist and has pain with palpation and motion to bilateral wrists. He also has what appears to be tophi to bilateral elbows. He does have significant amount of erythema noted to the left lateral knee and again pain with palpation as well. It appears that he may have tenosynovitis to the left wrist area as well given the streaking. NEUROLOGICAL: He is awake, alert, and oriented x3. No gross focal deficits. SKIN: Intact. DIAGNOSTIC STUDIES/LAB DATA: WBC 12.9, RBC 4.24, hemoglobin 13.3, hematocrit 39, platelet count of 289. ESR 105. INR 1.21. Sodium 132, potassium , chloride 99, bicarb 24, BUN 16, creatinine 0.90, glucose 105, lactate 1, uric acid 4.5, calcium 10.2. CRP of 261. Albumin 3.4. He had a venous Doppler study obtained today, which showed no evidence for DVT, Damico's cyst. Chest x-ray obtained today revealed no active disease, no vascular congestion findings. Old medical records were reviewed. ASSESSMENT AND PLAN: Mr. Agustin is a 66-year-old male patient coming into the ER today with complaints of diffuse joint discomfort. On evaluation today, it was noted his ESR is elevated, CRP was elevated. There was concern with recent leech therapy, there may be underlying infection. We were asked to evaluate for admission. He will be admitted under inpatient status for: 1. Diffuse joint pain. Again, I am concerned for underlying rheumatological disorder. It could be diffuse gout as he has had this for such a long time and he has not really had full treatment. The plan will be to get a rheumatology consult. I am going to send off in addition to this, anti-CCP, JUVENAL as well as Galloway IgG, hand and wrist x-rays, and get a rheumatoid factor. I am going to start him on steroids b.i.d. In addition to this, put him on colchicine b.i.d. as well and I am going to continue cefepime for possible underlying infection. We will get blood cultures and we will continue to follow him closely. 2. Gout. Continue allopurinol and meds as prescribed. 3. Hypertension. Continue meds as prescribed. 4. Arthritis. P.r.n. pain medications will be made available and continue meds as prescribed. 5. DVT prophylaxis. He is high risk. He will be placed on heparin subcu. 6. Fluids, electrolytes, and nutrition. He can have a vegetarian diet. 7. Code status. Full code. TIME SPENT: On the admission was 60 minutes, greater than half the time spent face- to-face with the patient obtaining my history and physical, the other half time was spent going over the plan of care with the patient and implementing plan of care. I did discuss the plan of care with my attending, Dr. Singh; she is in agreement. NATHAN HINKLE, CORPORATE TAX MANAGER [id number]/[facility] #: [id number] STAN
[2017-07-02] MEDS: Allopurinol TAB* 100 MG PO SCH (22:06)
[2017-07-02] MEDS: Heparin VIAL(*) 5000 UNITS/ML VIAL (FIVE THOUSAND) SUBCUT SCH (22:06)
[2017-07-02] MEDS: Colchicine* 0.6 MG TAB PO SCH (22:06)
[2017-07-03] MEDS: Cefepime 2 GM in Dextrose(*) 2 GM/50 ML BAG IV SCH ×2 (03:55→16:37)
[2017-07-03 05:31] LABS: Urine Bilirubin Negative (Negative); Urine Glucose Negative (Negative); Urine Nitrite Negative (Negative)
[2017-07-03] MEDS: methylPREDNISolone SOD 40 MG* 1 ML VIAL IV SCH ×2 (05:42→18:18)
[2017-07-03] MEDS: Heparin VIAL(*) 5000 UNITS/ML VIAL (FIVE THOUSAND) SUBCUT SCH ×3 (05:44→20:56)
[2017-07-03] MEDS: NS 0.9% 1000 ML* 1,000 ML IV SCH (05:45)
[2017-07-03 07:10] LABS: Hematocrit 38 % (42-52); Hemoglobin 13.2 g/dl (14.0-18.0); Mean Corpuscular HGB Conc 35 g/dl (31-36); Mean Corpuscular Hemoglobin 31 pg (27-31); Mean Corpuscular Volume 90 fL (80-94); Mean Platelet Volume 7 um3 (7.4-10.4); Red Blood Count 4.24 10^6/ul (4.0-5.4); Red Cell Distribution Width 13 % (10.5-15); White Blood Count 13.2 10^3/ul (3.5-10.8)
[2017-07-03 07:21] LABS: BUN/Creatinine Ratio 22.1 (8-20); Calcium 9.9 mg/dL (8.6-10.3); EGFR African American 115.1 (>60); EGFR Non-African American 89.5 (>60); Potassium 4.3 mmol/L (3.5-5.0)
--- NOTE | 2017-07-03 08:33 | CONSULT ---
Consult Consult: Mr. Agustin is a 66 year old man with a history of tophaceous gout admitted with polyarticular joint pain. His presentation is consistent with a flare of polyarticular gout. He is improved today on steroids. As he continues to improve, consider switching his IV steroids to oral Prednisone 40mg daily and tapering by 10mg every 4 days. He may benefit from bedside PT to improve mobility. Would re check uric acid in 1 or 2 days as his attack resolves. I suspect that he will need a higher dose allopurinol usp to prevent attacks; we also discussed need to be strictly adherent to allopurinol; however I do not recommend changing the dose now while he is having an acute attack. Continue other anti inflammatory meds as you are doing. Will follow; thanks!
[2017-07-03] MEDS: Losartan TAB* 25 MG PO SCH (08:40)
[2017-07-03] MEDS: Omeprazole CAP* 20 MG PO SCH (08:40)
[2017-07-03] MEDS: Allopurinol TAB* 100 MG PO SCH ×2 (08:40→20:56)
[2017-07-03] MEDS: Colchicine* 0.6 MG TAB PO SCH ×2 (08:40→20:56)
--- NOTE | 2017-07-03 09:08 | PN ---
Subjective Date of Service: 07/03/17 Interval History: HOSPITALIST PROGRESS NOTE Patient seen and examined at bedside. He feels better this AM. Had fever and sweats last night, but feels improved now. Can move his hands and feet now, which he could not do last night. Denies N /V or diarrhea. Family History: Unchanged from Admission Social History: Unchanged from Admission Past Medical History: Unchanged from Admission Objective Active Medications: Acetaminophen (Tylenol Tab*) 650 mg PO Q4H PRN PRN Reason: FEVER/PAIN Last Admin: 07/02/17 19:47 Dose: 650 mg Allopurinol (Zyloprim Tab*) 100 mg PO BID [facility] Last Admin: 07/03/17 08:40 Dose: 100 mg Colchicine (Colcrys*) 0.6 mg PO BID [facility] Last Admin: 07/03/17 08:40 Dose: 0.6 mg Heparin Sodium (Porcine) (Heparin Vial(*)) 5,000 units SUBCUT Q8HR [facility] Last Admin: 07/03/17 05:44 Dose: 5,000 units Cefepime HCl (Maxipime 2 Gm In Dextrose Duplex (*)) 2 gm in 50 mls @ 100 mls/ hr IV Q12H [facility] Last Admin: 07/03/17 03:55 Dose: 100 mls/hr Losartan Potassium (Cozaar Tab*) 50 mg PO DAILY [facility] Last Admin: 07/03/17 08:40 Dose: 50 mg Methylprednisolone Sodium Succinate (Solu-Medrol 40 Mg) 40 mg IV Q12H [facility] Last Admin: 07/03/17 05:42 Dose: 40 mg Omeprazole (Prilosec Cap*) 20 mg PO DAILY@0730 [facility] Last Admin: 07/03/17 08:40 Dose: 20 mg Ondansetron HCl (Zofran Inj*) 4 mg IV Q6H PRN PRN Reason: NAUSEA Vital Signs 07/02/17 07/02/17 07/02/17 18:05 19:21 19:32 Temperature 98.4 F 102.6 F Pulse Rate 84 92 Respiratory 16 20 18 Rate Blood Pressure 118/72 142/66 (mmHg) O2 Sat by Pulse 98 90 Oximetry 07/03/17 03:34 Temperature 97.7 F Pulse Rate 70 Respiratory 20 Rate Blood Pressure 140/81 (mmHg) O2 Sat by Pulse 95 Oximetry Oxygen Devices in Use Now: None Appearance: Pleasant gentleman lying in bed in NAD. Eyes: No Scleral Icterus Ears/Nose/Mouth/Throat: Mucous Membranes Moist Neck: Trachea Midline Respiratory: Symmetrical Chest Expansion and Respiratory Effort, Clear to Auscultation Cardiovascular: RRR - Normal S1 and S2 Abdominal: NL Sounds; No Tenderness; No Distention Extremities: - - Arthritis and tenosynovitis of both hands L>R, but erythema and warmth less intense than yesterday. Elbows, knees, and ankles are also less swollen and warm. Skin: - - Tophi on fingers and elbows Neurological: Alert and Oriented x 3, NL Muscle Strength and Tone Lines/Tubes/Other Access: Clean, Dry and Intact Peripheral IV Nutrition: Taking PO's Result Diagrams: 07/03/17 06:48 07/03/17 06:48 Assess/Plan/Problems-Billing Assessment: Mr. Agustin is a 66yo M with PMH of tophaceous gout, HTN, who presented to ED with a polyarthritic gout flare. - Patient Problems (1) Tophaceous gout Comment: - Showing improvement this AM. - Rheumatology input appreciated. - Continue Solumedrol, Colchicine, and Allopurinol. - PT/OT today as tolerated. - If he continues to improve, will transition to prednisone PO tomorrow and increase Allopurinol to 300mg/day next week. - Repeat uric acid level in 1-2 days. (2) SIRS (systemic inflammatory response syndrome) Comment: - Met SIRS criteria with fever and leukocytosis, but no clear infectious source at this point. Suspect this is all secondary to his severe gout. - Continue Cefepime, follow cultures, and check procalcitonin, but if all negative, will d/c antibiotic. (3) HTN (hypertension) Comment: - Continue Losartan. (4) DVT prophylaxis Comment: - SQ heparin. (5) Full code status Status and Disposition: Inpatient.
[2017-07-03 10:14] LABS: Ferritin 477.5 ng/mL (24-336)
--- NOTE | 2017-07-03 10:17 | CONS ---
CONSULTATION REPORT: DATE OF CONSULTATION: 07/03/17 CONSULTING PHYSICIAN: Dr. Moseley. REASON FOR CONSULTATION: Polyarticular joint pain. HISTORY OF PRESENT ILLNESS: Mr. 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 He has a longstanding history of tophaceous gout, which we noted was confirmed by a dermato logist who excised nodules at the ends of his fingers and confirmed tophi. 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 He has a longstanding history of gout with many attacks initially beginning many year s ago in the toes, but also proceeding to other joints including the knees, hands, and multiple other joints. He has also built up tophi over time along the olecranon region of his arms. He does recal l that he initially tried dietary therapy as well as a low purine diet even vegetarian as well as sharmila rry juice and alfalfa initially to treat his gout in terms of preventing attacks for several years. He has also, for acute attacks in the past, tried colchicine as well as indomethacin. More recently over the summer, he did agree to ultimately start allopurinol. He has been on 100 mg twice daily. H e did note that over the past 1 to 2 weeks, and this was confirmed by his , that he has not been always taking his daily dose of allopurinol. He had been ill, which occurred shortly after a leech t reatment for his Damico cyst. He presented with some diffuse swelling and pain of his hands, wrists, as well as left knee discomfort and right knee pain. It was initially felt that he might have cellul itis, but he did not have any definitive cellulitic features on exam, although his C-reactive protein was very, very high. He has been treated with Solu-Medrol per my discussion last night with Dr. Jenkins and per my recommendations; and, with this therapy, he has noticed substantial improvement alread y today in terms of his gout, and his hands, feet, knees have improved range of motion. He has had i ncreased discomfort recently, but this has improved this morning, but he does have some chronic topha ceous deformities as well. As noted above, he has had leech therapy as well. He has been treated wit h Bactrim and Keflex. He denies any chest wall pain or shortness of breath. He does have a signific ant amount of pain in his hands, his elbows, wrist, fingers, as well as his knees, but this has impro [place]on this morning. He has improved range of motion of his hands, which were also very stiff. Symptoms are worse with movement and he noted that he has improved a little bit with rest. He did recall in t he remote past that he did not tolerate taking allopurinol and colchicine at the very same time, so armen bautista has split these doses up as well when he has attacks of gout. PAST MEDICAL HISTORY: Includes: 1. Gout. 2. Hypertension. 3. Osteoarthritis. PAST SURGICAL HISTORY: Includes multiple knee arthroscopies. MEDICATIONS: As an outpatient include: 1. Diphenhydramine. 2. Indomethacin 50 mg t.i.d. 3. Glucosamine chondroitin. 4. Colchicine 0.6 mg daily as needed. 5. Magnesium. 6. Echinacea. 7. B12. 8. Bactrim one tablet b.i.d. 9. Cefdinir 300 mg b.i.d. 10. Losartan 50 mg daily. 11. Allopurinol 100 mg b.i.d. ALLERGIES: Include SHELLFISH, which also seems to trigger gout attack. FAMILY HISTORY: He is adopted, but he did recall that there is some family history of heart disease in his family. SOCIAL HISTORY: He does not smoke. He does not drink alcohol for the most part, although he occasio morro has an alcoholic drink. His is also very supportive who I discussed his case with today. REVIEW OF SYSTEMS: General: He did have a fever of 100.4 initially, but he is not febrile this morn ing. He denied any significant constitutional symptoms or weight changes. ENT: He denies any doubl e vision. No ear discharge. Ocular: Denies any rhinorrhea. No vision problems. Endocrine: Denie s thyroid enlargement. Cardiac: Denies chest wall pain. Pulmonary: Denies orthopnea. No nocturnal dyspnea. GI: Denies abdominal pain. Denies nausea or vomiting. : Denies dysuria. No increase d frequency. Neurologic: No focal weakness. No seizures. Skin: Denies pruritus. He does have top hi, but no skin ulcerations. Musculoskeletal: As noted above. Other 14-point review of systems were noted and were otherwise negative. PHYSICAL EXAM: He is a pleasant 66-year-old male, conversive, lying supine in bed, but able to mobil ize and answer questions appropriately. His initial vital signs were 129/76 for blood pressure, puls e of 82, respiratory rate of 18, O2 sats 97%, temperature 97.8. HEENT: Head was atraumatic, normoce phalic. Extraocular movements are intact. Sclerae was anicteric, not pale. Throat: Oral mucosa ap pears to be moist. No oropharyngeal erythema. Neck: Supple. Lymph: No adenopathy. Endocrine: N o thyromegaly. Lungs: Clear to auscultation bilaterally. No wheezes, rales, or rhonchi. Heart: R egular rate and rhythm. Normal S1 and S2. No murmurs, rubs or gallops. No S3 or S4. Abdomen: Soft, flat, and nontender. Positive bowel sounds with no organomegaly or hepatosplenomegaly. Pulses were 2+ throughout. Neurologic: Nonfocal with good motor strength except for slightly diminished strengt h in the hands secondary to deformities from his tophi. Musculoskeletal exam: He has significant to phi along the olecranon region of both arms with several clumped together. He also has hallux valgus deformities and enlargement of the left toe. Also there is minimal tenderness of both knees, but he is restricted in range of motion. There is a diffuse restriction of his hands, but he is able to ma ke a fist to a partial extent. There appears to be tophi along the ends of the DIP joints. There is no erythema, however, around the joints. He does have mild swelling around both ankles, left greate r than right. Otherwise, there is no erythema or fluctuance, but he does have significant restriction . Skin: No rash noted. He does have the tophi as noted above. Psychiatric: Pleasant. DIAGNOSTIC STUDIES/LAB DATA: White count of 12.9, hemoglobin 13.3, hematocrit 39, platelet count 289 ,000, sed rate 105, C-reactive protein is very high, creatinine 0.9, glucose 105, uric acid 4.5, calc ium 10.2. C-reactive protein 261, albumin 3.4. ASSESSMENT AND PLAN: Mr. Agustin is a 66-year-old male who came with polyarticular joint pain. His p resentation is consistent with an overwhelming flare of tophaceous gout with an overlapping flare of joint pain and inflammation. He would benefit from continuing allopurinol at this time. His uric a fernanda perhaps may have been low because he had such an acute severe flare of gout. I would recommend r echecking the uric acid in a day or two. If it all is above 6, then I would recommend increasing all opurinol to 300 mg daily. At this point in time, however, I would not change the dose of allopurinol given that he is having an acute attack. Continue Solu-Medrol as you are doing and agree with follow ing up with rheumatoid factor, although it seems more likely that this is a flare of gout. He may be nefit from bedside physical therapy. We also discussed the need for adherence to his allopurinol. Armen bautista does have a family history of heart disease, but is otherwise adopted. It is possible that he may have an underlying metabolic condition that may be increasing his risk for polyarticular gout as he c ontinues to have flares of gout despite of low purine diet. Would continue to follow daily, but it m ay be worth also considering a metabolic workup. FPC, we discussed at length different options to help reduce the risk of flares of gout as well as ways to take out colchicine and indomethacin if he does have an acute attack of gout. Generally, with changing the dose of allopurinol, he should ov erlap this with antiinflammatory medicine. TIME SPENT: Time spent with the patient was greater than 65 minutes with greater than 50% of the ike e spent counselling the patient and arranging for care. [id number]/[facility] #: [id number]
[2017-07-03] MEDS: Lactobacillus Acidophilu (GG)* 1 CAP CAP PO SCH ×2 (12:11→20:56)
[2017-07-04] MEDS: Cefepime 2 GM in Dextrose(*) 2 GM/50 ML BAG IV SCH (03:58)
[2017-07-04] MEDS: Acetaminophen TAB* 325 MG PO PRN (04:09)
[2017-07-04] MEDS: Heparin VIAL(*) 5000 UNITS/ML VIAL (FIVE THOUSAND) SUBCUT SCH ×3 (05:47→21:31)
[2017-07-04] MEDS: Omeprazole CAP* 20 MG PO SCH (05:47)
[2017-07-04] MEDS: methylPREDNISolone SOD 40 MG* 1 ML VIAL IV SCH (05:48)
[2017-07-04] MEDS: Lactobacillus Acidophilu (GG)* 1 CAP CAP PO SCH ×2 (08:33→21:32)
[2017-07-04] MEDS: Colchicine* 0.6 MG TAB PO SCH ×2 (08:33→21:32)
[2017-07-04] MEDS: Losartan TAB* 25 MG PO SCH (08:33)
[2017-07-04] MEDS: Allopurinol TAB* 100 MG PO SCH ×2 (08:33→21:32)
[2017-07-04 11:49] LABS: Sm (Smith) IgG Antibody <0.2 U
--- NOTE | 2017-07-04 12:15 | PN ---
Subjective Date of Service: 07/04/17 Interval History: Pt feels much better today.several questions were answered during the visit. Pt has always been utilizing alternative medicine and diet to control his symptoms. Educated about that need to continue tx with allopurinol and prednisone Family History: Unchanged from Admission Social History: Unchanged from Admission Past Medical History: Unchanged from Admission Objective Active Medications: Acetaminophen (Tylenol Tab*) 650 mg PO Q4H PRN PRN Reason: FEVER/PAIN Last Admin: 07/04/17 04:09 Dose: 650 mg Allopurinol (Zyloprim Tab*) 100 mg PO BID [facility] Last Admin: 07/04/17 08:33 Dose: 100 mg Colchicine (Colcrys*) 0.6 mg PO BID [facility] Last Admin: 07/04/17 08:33 Dose: 0.6 mg Heparin Sodium (Porcine) (Heparin Vial(*)) 5,000 units SUBCUT Q8HR [facility] Last Admin: 07/04/17 05:47 Dose: 5,000 units Lactobacillus Rhamnosus (Culturelle*) 1 cap PO BID [facility] Last Admin: 07/04/17 08:33 Dose: 1 cap Losartan Potassium (Cozaar Tab*) 50 mg PO DAILY [facility] Last Admin: 07/04/17 08:33 Dose: 50 mg Omeprazole (Prilosec Cap*) 20 mg PO DAILY@0730 [facility] Last Admin: 07/04/17 05:47 Dose: 20 mg Ondansetron HCl (Zofran Inj*) 4 mg IV Q6H PRN PRN Reason: NAUSEA Prednisone (Deltasone Tab*) 40 mg PO DAILY [facility] Vital Signs 07/03/17 07/03/17 07/03/17 15:46 16:00 20:00 Temperature 97.9 F Pulse Rate 73 Respiratory 20 18 Rate Blood Pressure 113/63 (mmHg) O2 Sat by Pulse 94 94 Oximetry 07/03/17 07/03/17 07/04/17 20:37 23:39 04:51 Temperature 97.4 F 98.3 F 97.9 F Pulse Rate 76 78 70 Respiratory 18 16 16 Rate Blood Pressure 123/78 126/71 119/73 (mmHg) O2 Sat by Pulse 95 93 94 Oximetry 07/04/17 07/04/17 08:00 11:25 Temperature 97.3 F Pulse Rate 78 Respiratory 16 19 Rate Blood Pressure 143/87 (mmHg) O2 Sat by Pulse 96 Oximetry Oxygen Devices in Use Now: None Appearance: 66 yo M in nAD, aAOx3 Eyes: No Scleral Icterus, PERRLA Ears/Nose/Mouth/Throat: NL Teeth, Lips, Gums, Mucous Membranes Moist Neck: NL Appearance and Movements; NL JVP, Trachea Midline Respiratory: Symmetrical Chest Expansion and Respiratory Effort, Clear to Auscultation Cardiovascular: NL Sounds; No Murmurs; No JVD, RRR Abdominal: NL Sounds; No Tenderness; No Distention Lymphatic: No Cervical Adenopathy Extremities: No Clubbing, Cyanosis, - - 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, mild chronic olecranon bursitis b/l, left podagra, left MCP joint with edema and erythema noted as well as edema of fingers 2-3 on L Skin: No Rash or Ulcers Neurological: Alert and Oriented x 3, NL Muscle Strength and Tone Result Diagrams: 07/03/17 06:48 07/03/17 06:48 Additional Lab and Data: Lab Results 07/02/17 07/02/17 07/02/17 Range/Units 13:55 13:55 13:55 WBC (3.5-10.8) 10^3/ul RBC (4.0-5.4) 10^6/ul Hgb (14.0-18.0) g/dl Hct (42-52) % MCV (80-94) fL MCH (27-31) pg MCHC (31-36) g/dl RDW (10.5-15) % Plt Count (150-450) 10^3/ul MPV (7.4-10.4) um3 Neut % (Auto) (38-83) % Lymph % (Auto) (25-47) % [place] % (Auto) (1-9) % Eos % (Auto) (0-6) % Baso % (Auto) (0-2) % Absolute Neuts (auto) (1.5-7.7) 10^3/ul Absolute Lymphs (auto) (1.0-4.8) 10^3/ul Absolute Monos (auto) (0-0.8) 10^3/ul Absolute Eos (auto) (0-0.6) 10^3/ul Absolute Basos (auto) (0-0.2) 10^3/ul Absolute Nucleated RBC 10^3/ul Nucleated RBC % ESR (0-20) mm/Hr INR (Anticoag Therapy) 1.21 H (0.89-1.11) APTT 28.3 (26.0-36.3) seconds Sodium 132 L (133-145) mmol/L Potassium 3.8 (3.5-5.0) mmol/L Chloride 99 L (101-111) mmol/L Carbon Dioxide 24 (22-32) mmol/L Anion Gap 9 (2-11) mmol/L BUN 16 (6-24) mg/dL Creatinine 0.90 (0.67-1.17) mg/dL Est GFR ( Amer) 109.3 (>60) Est GFR (Non-Af Amer) 85.0 (>60) BUN/Creatinine Ratio 17.8 (8-20) Glucose 105 H (70-100) mg/dL Lactic Acid (0.5-2.0) mmol/L Uric Acid 4.5 (4.4-7.6) mg/dL Calcium 10.2 (8.6-10.3) mg/dL Total Bilirubin 0.60 (0.2-1.0) mg/dL AST 13 (13-39) U/L ALT 10 (7-52) U/L Alkaline Phosphatase 86 (34-104) U/L C-Reactive Protein 261.35 H (< 5.00) mg/L B-Natriuretic Peptide 58 ( - 100) pg/mL Total Protein 7.2 (6.4-8.9) g/dL Albumin 3.4 (3.2-5.2) g/dL Globulin 3.8 (2-4) g/dL Albumin/Globulin Ratio 0.9 L (1-3) 07/02/17 07/02/17 Range/Units 13:55 13:55 WBC 12.9 H (3.5-10.8) 10^3/ul RBC 4.24 (4.0-5.4) 10^6/ul Hgb 13.3 L (14.0-18.0) g/dl Hct 39 L (42-52) % MCV 91 (80-94) fL MCH 31 (27-31) pg MCHC 34 (31-36) g/dl RDW 13 (10.5-15) % Plt Count 289 (150-450) 10^3/ul MPV 7 L (7.4-10.4) um3 Neut % (Auto) 74.7 (38-83) % Lymph % (Auto) 13.9 L (25-47) % [place] % (Auto) 10.8 H (1-9) % Eos % (Auto) 0.2 (0-6) % Baso % (Auto) 0.4 (0-2) % Absolute Neuts (auto) 9.6 H (1.5-7.7) 10^3/ul Absolute Lymphs (auto) 1.8 (1.0-4.8) 10^3/ul Absolute Monos (auto) 1.4 H (0-0.8) 10^3/ul Absolute Eos (auto) 0 (0-0.6) 10^3/ul Absolute Basos (auto) 0.1 (0-0.2) 10^3/ul Absolute Nucleated RBC 0 10^3/ul Nucleated RBC % 0 ESR 105 H (0-20) mm/Hr INR (Anticoag Therapy) (0.89-1.11) APTT (26.0-36.3) seconds Sodium (133-145) mmol/L Potassium (3.5-5.0) mmol/L Chloride (101-111) mmol/L Carbon Dioxide (22-32) mmol/L Anion Gap (2-11) mmol/L BUN (6-24) mg/dL Creatinine (0.67-1.17) mg/dL Est GFR ( Amer) (>60) Est GFR (Non-Af Amer) (>60) BUN/Creatinine Ratio (8-20) Glucose (70-100) mg/dL Lactic Acid 1.1 (0.5-2.0) mmol/L Uric Acid (4.4-7.6) mg/dL Calcium (8.6-10.3) mg/dL Total Bilirubin (0.2-1.0) mg/dL AST (13-39) U/L ALT (7-52) U/L Alkaline Phosphatase (34-104) U/L C-Reactive Protein (< 5.00) mg/L B-Natriuretic Peptide ( - 100) pg/mL Total Protein (6.4-8.9) g/dL Albumin (3.2-5.2) g/dL Globulin (2-4) g/dL Albumin/Globulin Ratio (1-3) Assess/Plan/Problems-Billing Assessment: Mr. Agustin is a 66yo M with PMH of tophaceous gout, HTN, who presented to ED with a polyarthritic gout flare. - Patient Problems (1) Tophaceous gout Comment: - Showing improvement , will switch Solu Medrol to prednisone - Rheumatology input appreciated, serology w/up pending. - Continue Colchicine, and Allopurinol. - PT/OT cont - plan to increase Allopurinol to 300mg/day next week. - Repeat uric acid level in 1-2 days. (2) SIRS (systemic inflammatory response syndrome) Comment: - Met SIRS criteria with fever and leukocytosis, but no clear infectious source at this point. Suspect this is all secondary to his severe gout. - cultures neg , procalcitonin low - will d/c antibiotic. (3) HTN (hypertension) Comment: - Continue Losartan, controlled (4) Iron (Fe) deficiency anemia Comment: May be due to diet-pt is vegetarian.Pt denies melena, or bleeding with BM's Will start iron supplement and check stool guaiac (5) DVT prophylaxis Comment: - SQ heparin. Status and Disposition: Inpatient.Anticipated discharge in AM
[2017-07-04 17:35] LABS: Cyclic Citrullinated Pept IgG <15.6 U
[2017-07-05] MEDS: Acetaminophen TAB* 325 MG PO PRN ×2 (03:48→09:13)
[2017-07-05 04:55] LABS: Hematocrit 36 % (42-52); Hemoglobin 11.9 g/dl (14.0-18.0); Mean Corpuscular HGB Conc 33 g/dl (31-36); Mean Corpuscular Hemoglobin 31 pg (27-31); Mean Corpuscular Volume 92 fL (80-94); Mean Platelet Volume 7 um3 (7.4-10.4); Red Blood Count 3.88 10^6/ul (4.0-5.4); Red Cell Distribution Width 13 % (10.5-15); White Blood Count 16.2 10^3/ul (3.5-10.8)
[2017-07-05] MEDS: Heparin VIAL(*) 5000 UNITS/ML VIAL (FIVE THOUSAND) SUBCUT SCH (05:31)
[2017-07-05] MEDS: Colchicine* 0.6 MG TAB PO SCH (09:00)
[2017-07-05] MEDS: Omeprazole CAP* 20 MG PO SCH (09:00)
[2017-07-05] MEDS: Losartan TAB* 25 MG PO SCH (09:00)
[2017-07-05] MEDS ORDERED: predniSONE TAB* 20 MG PO SCH (09:00)
[2017-07-05] MEDS ORDERED: Ferrous Sulfate TAB* 325 MG PO SCH (09:00)
[2017-07-05] MEDS: Allopurinol TAB* 100 MG PO SCH (09:00)
[2017-07-05] MEDS: Lactobacillus Acidophilu (GG)* 1 CAP CAP PO SCH (09:01)
[2017-07-05 12:02] VITALS: BP 130/64
--- NOTE | 2017-07-06 03:10 | DS ---
ADDENDUM NOW INCLUDED ON THIS REPORT CC: Dr. Conway; Dr. Amber Cosme * DISCHARGE SUMMARY: DATE OF ADMISSION: 07/02/17 DATE OF DISCHARGE: 07/05/17 PRIMARY CARE PROVIDER: Dr. Amber Cosme. DISCHARGE DIAGNOSIS: 1. Acute polyarticular tophaceous gout flare. 2. Iron deficiency anemia. SECONDARY DIAGNOSES: 1. History of chronic tophaceous gout. 2. History of hypertension. 3. History of arthritis. MEDICATIONS AT DISCHARGE: 1. Allopurinol 100 mg b.i.d. 2. Colchicine 0.6 mg b.i.d. 3. Vitamin B12 500 mg by mouth daily. 4. Benadryl cream on a p.r.n. basis. 5. Echinacea one capsule daily. 6. Ferrous sulfate 325 mg daily. 7. Glucosamine chondroitin one tablet daily. 8. Cozaar 50 mg daily. 9. Magnesium 400 mg daily. 10. Omeprazole 20 mg daily. 11. Prednisone taper 40 mg daily for four days, then 30 mg daily for four days , then 20 mg daily for four days, then 10 mg daily for four days, then stop. At discharge, the patient is recommended to follow up with Dr. Conway in approximately one to two weeks and Dr. Amber Cosme in four to seven days for follow up of his hospital stay. The patient is being given off work note that he will be unable to work for the next 10 days or until cleared by his primary care provider. Consultations during the hospital stay included Dr. Conway from Rheumatology. LABORATORY DATA AND DIAGNOSTIC STUDIES: Include:On 07/02/17, rheumatoid factor is pending. CCP, IgG was below 15. JUVENAL 0.7. Anti-roman antibody was below 0.2 , an anti-double stranded DNA IgG was below 12. On 07/03/17, sodium 134, potassium of 4.3, chloride 101, carbon dioxide 24, BUN 19, creatinine 0.86. The patient's iron level was 16, TIBC of 202, and percent iron saturation 8, ferritin of 477. On 07/05/17, white blood cell count of 16.2, hemoglobin of 11.9, hematocrit of 37, and platelets of 337. ESR was 105 at admission. C-reactive protein was 261 at admission. Hand x-ray of the right hand showed soft tissue swelling. Of the left hand showed soft tissue swelling in addition there is erosive change in the third proximal interphalangeal joint, likely secondary to inflammatory arthropathy although and septic arthritis cannot be excluded. HOSPITALIZATION COURSE: Gage Agustin is a 66-year-old male with history of longstanding tophaceous gout, who had been mostly managing it with diet and alternative medicine. 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 With the proximity to couple of days of his leech therapy that was mid last week, he developed acute polyarticular gout, for which he presented to the ED for evaluation. His gout was very disabling and involved mostly left knee and left hand, but also bilateral ankles. It appears that his left side was more affected than the right. He was noted to have multiple tophi on evaluation with podagra on the left side as well as tophi noted on his elbow, bilateral hands and bilateral knees. He also has a history of having deposits of tophaceous gout in his finger tips and that was operated on in the past. The patient was treated with steroids initially due to high inflammatory markers with broad-spectrum antibiotics. He was seen by Dr. Conway in consultation who noted that the patient's reaction is most likely due to polyarticular tophaceous gout and infection is less likely. The patient's procalcitonin level was negative of 0.2. The patient was continued to be treated with steroids and his antibiotics were discontinued two days prior to his discharge. He continued to improve and was treated with colchicine and Solu -Medrol initially then switched to prednisone. His allopurinol was continued at 100 mg b.i.d. and adherence to other medication at discharge was stressed. The patient's uric acid on the day of discharge was noted to be 5.[address] Conway's recommendation allopurinol was not increased since it was supposed to be increased if the patient's uric acid is above 6. He is going to be discharged home. Recommendation is to follow up with the primary care provider as well as Dr. Conway. Please note that the patient underwent extensive physical therapy evaluation. His mobility is still significantly impaired and he ambulates to using stairs with two crutches. He also needs to raise the toilet seat to be able to go home which is going to be provided after discussion with the family service caseworker. The patient also was set up with the visiting nurse association at discharge. PHYSICAL EXAMINATION: At the time of discharge, blood pressure of 138/64, heart rate of 65 and regular, respiratory rate 16, oxygen saturation 96% on room air, temperature 98.0. General: The patient is a very pleasant 66-year-old male, who is in no acute distress. Alert, awake, and oriented x3. HEENT: Head: Atraumatic and normocephalic. Eyes: Pupils are equal, reactive to light and accommodation. Oropharynx is clear. Mucosa moist. Neck: Supple. No JVD. No bruits bilaterally. Cardiovascular: Regular rate and rhythm. No murmur. Respiratory: Clear to auscultation bilaterally. Abdomen: Soft, nontender. Bowel sounds are present in all four quadrants. Extremities: There is bilateral feet edema, left more than right. It is nonpitting. There is no clubbing or cyanosis. There is a significant left hand edema due to gout. The patient has visible podagra, but the MTP joint is not with acute erythema and slightly tender to palpation. The patient also has gout noted in the joints of the left hand with mild erythema, but marked edema still present. The patient has tophi noted in bilateral knees, left more than right as well as bilateral elbows. He also has what appears to be chronic olecranon bursitis. Neuro Evaluation: Cranial nerves II through XII were grossly intact. Motor strength is 5/5 bilaterally. Limitation of range of motion in the joints, especially in the left foot, left hand and left knee due to gout is noted. Please note that this is a short summary of the patient's hospital stay. Please refer to further medical records for details. Approximately, 45 minutes was spent on this patient's discharge. ADDENDUM: Please note that as previously mentioned, the patient was noted to be iron deficient with mild anemia by the end of his hospital stay. Initially, was started with iron deficiency anemia, but the patient's low TIBC and high ferritin level indicate that patient has anemia most likely of chronic inflammatory disease. Nevertheless, he was started on iron supplements. Please also note that patient reported that he had negative colonoscopy within the past 6 months and he had no history of melanotic or bloody stools. [id number]/[facility] #: [id number] A- [id number]/[facility]PS #: [id number] [facility]
--- NOTE | 2017-07-06 05:00 | DS ---
DISCHARGE SUMMARY: ADDENDUM: Please note that as previously mentioned, the patient was noted to be iron deficient with mild anemia by the end of his hospital stay. Initially, was started with iron deficiency anemia, but the patient's low TIBC and high ferritin level indicate that patient has anemia most likely of chronic inflammatory disease. Nevertheless, he was started on iron supplements. Please also note that patient reported that he had negative colonoscopy within the past 6 months and he had no history of melanotic or bloody stools. [id number]/[facility] #: [id number] STAN
[2017-07-06 09:58] LABS: Rheumatoid Factor <15 IU/mL (<15)
== END 2017-07-05 13:30 | disposition home or self-care (01) | DRG 351 ==
LOC: ED 12:56 → MED 15:12
PROVIDERS: ADMIT Internal Medicine; ATTEND Internal Medicine
DX: M10.042 Idiopathic gout, left hand (principal); R65.10 Systemic inflammatory response syndrome (SIRS) of non-infectious origin without acute organ dysfunction; M10.041 Idiopathic gout, right hand; D50.9 Iron deficiency anemia, unspecified; M1A.0421 Idiopathic chronic gout, left hand, with tophus (tophi); M1A.0411 Idiopathic chronic gout, right hand, with tophus (tophi); I10 Essential (primary) hypertension; M19.90 Unspecified osteoarthritis, unspecified site; M1A.029 Idiopathic chronic gout, unspecified elbow; M1A.0621 Idiopathic chronic gout, left knee, with tophus (tophi); M1A.0611 Idiopathic chronic gout, right knee, with tophus (tophi); Z79.899 Other long term (current) drug therapy; Z91.013 Allergy to seafood; Z82.49 Family history of ischemic heart disease and other diseases of the circulatory system
CPT/HCPCS: 36415; 71010; 80048; 80053; 81003; 82565; 82728; 83540; 83550; 83605; 83880; 84145; 84520; 84550; 85025; 85610; 85652; 85730; 86038; 86140; 86200; 86225; 86235; 86431; 87040; 87086; A9270-GY; J0692; J1644; J1885; J2920; J7512

== ENCOUNTER → 2018-09-06 07:25 | Day surgery (SDC) | payer OTHER ==
[~2018-09-06 07:25] MED LIST: Acetaminophen TAB* 325 MG PO PRN; Cyclopentolate 1% OPTH.SOL* 2 ML BTL ONE; Ketorolac 0.5% OPHTH (NF) 0.5 % 5 ML BTL ONE; Lidocaine 1%* 5 ML VIAL ONE; Midazolam* 1 MG/ML 5 ML VIAL (5 MG) ONE; Neomycin/Polymy/Dex OPHTH.OIN* 3.5 GM ONE; Phenylephrine 2.5% OPTH.SOL* 2 ML BTL ONE; Povidone Iodine 5% OPTH* 30 ML BTL ONE; Tetracaine 0.5% OPTH.SOL 4 ML* 1 DROP BTL ONE; Tropicamide 1% OPTH.SOL* BTL ONE; acetaZOLAMIDE TAB* 250 MG ONE; fentaNYL* 50 MCG/ML 2 ML VIAL (100 MCG VIAL) ONE
[2018-09-06 09:34] VITALS: BP 143/99
--- NOTE | 2018-09-06 10:43 | OP ---
DATE OF OPERATION: 09/06/2018 - [facility] DATE OF : 1950. SURGEON: Johnny Mullen MD ANESTHESIA: Monitored anesthesia care. PREOPERATIVE DIAGNOSIS: Cataract, right eye. POSTOPERATIVE DIAGNOSIS: Cataract, right eye. OPERATIVE PROCEDURE: Extracapsular cataract extraction of the right eye with intraocular lens implant. IMPLANT: SN60WF 15.0 diopter lens to the right eye. COMPLICATIONS: None. DESCRIPTION OF PROCEDURE: The patient was given phenylephrine 2.5 % and cyclopentolate 1% eye drops to the operative eye in the preoperative area. The patient was taken to the operating room where a time-out was taken to identify the correct patient, site, and side of surgery. The patient's right eye was prepped and draped in the usual sterile fashion with 5% Betadine. A second time- out was taken to verify the correct patient, side, and site of surgery, as well as the correct lens implant. A lid speculum was placed to the right eye. A 1mm paracentesis blade was used to make a clear corneal incision. Preservative-free 1% lidocaine was injected into the anterior chamber. DisCoVisc was then injected into the anterior chamber. A 2.75 mm keratome blade was used to make a triplanar incision. A cystotome initiated a capsulorrhexis, which was completed with Utrata forceps in a continuous and curvilinear manner. Hydrodissection of the lens was performed with BSS on a cannula. The lens could be spun in a capsular bag. The phacoemulsification handpiece was used with a divide-and- conquer technique to remove the nucleus. The I/A handpiece then removed the residual cortical lens material. DisCoVisc was injected to inflate the capsular bag. The planned SN60WF 15.0 diopter lens was injected into the capsular bag. The residual DisCoVisc was removed from the eye with the I/A handpiece. The corneal incisions were hydrated and no leaks occurred at physiologic pressure around 20 mmHg per palpation. The lid speculum was removed and drapes were removed. Maxitrol ointment was placed to the surface of the operative eye. An adhesive patch and shield was then placed on the operative eye. The patient was taken to the postoperative area in stable condition. [id number]/[facility] #: [id number] [facility]
== END | disposition home or self-care (01) ==
LOC: OREAST 07:25
PROVIDERS: ATTEND Student in an Organized Health Care Education/Training Program
DX: H25.11 Age-related nuclear cataract, right eye (principal); H43.812 Vitreous degeneration, left eye; I10 Essential (primary) hypertension; M19.90 Unspecified osteoarthritis, unspecified site; M10.9 Gout, unspecified
CPT/HCPCS: A9270-GY; J2250; J3010; V2632

== ENCOUNTER 2018-09-13 06:19 | Day surgery (SDC) | payer OTHER ==
[~2018-09-13 06:19] MED LIST changes: -Cyclopentolate 1% OPTH.SOL* 2 ML BTL ONE; -Ketorolac 0.5% OPHTH (NF) 0.5 % 5 ML BTL ONE; -Lidocaine 1%* 5 ML VIAL ONE; -Midazolam* 1 MG/ML 5 ML VIAL (5 MG) ONE; -Neomycin/Polymy/Dex OPHTH.OIN* 3.5 GM ONE; -Phenylephrine 2.5% OPTH.SOL* 2 ML BTL ONE; -Povidone Iodine 5% OPTH* 30 ML BTL ONE; -Tetracaine 0.5% OPTH.SOL 4 ML* 1 DROP BTL ONE; -Tropicamide 1% OPTH.SOL* BTL ONE; -acetaZOLAMIDE TAB* 250 MG ONE; -fentaNYL* 50 MCG/ML 2 ML VIAL (100 MCG VIAL) ONE
[2018-09-13] MEDS ORDERED: Midazolam* 1 MG/ML 5 ML VIAL (5 MG) ONE (07:26)
[2018-09-13] MEDS ORDERED: fentaNYL* 50 MCG/ML 2 ML VIAL (100 MCG VIAL) ONE (07:26)
[2018-09-13 08:14] VITALS: BP 133/87
--- NOTE | 2018-09-13 08:50 | OP ---
OPERATIVE REPORT: DATE OF OPERATION: 09/13/18 DATE OF : [birth year] SURGEON: Johnny Mullen MD ANESTHESIA: Monitored anesthesia care. PRE-OP DIAGNOSIS: Cataract, left eye. POST-OP DIAGNOSIS: Cataract, left eye. OPERATIVE PROCEDURE: Extracapsular cataract extraction of the left eye with intraocular lens implant . IMPLANT: SN60WF 15.0 diopter lens to the left eye. COMPLICATIONS: None. DESCRIPTION OF PROCEDURE: The patient was given phenylephrine 2.5% and cyclopentolate 1% eye drops t o the operative eye in the preoperative area. The patient was taken to the operating room where a ti me-out was taken to identify the correct patient, site, and side of surgery. The patient's left eye was prepped and draped in the usual sterile fashion with 5% Betadine. A second time-out was taken to verify the correct patient, site, and side of surgery and correct lens implant. A lid speculum was p laced to the left eye. A 1 mm paracentesis blade was used to make a clear corneal incision in the in ferotemporal position. Preservative-free 1% lidocaine was injected in the anterior chamber. DisCoVi sc was then injected into the anterior chamber. A 2.75 mm keratome blade was used to make a triplana r incision at the superotemporal position. A cystotome initiated a capsulorrhexis, which was complet ed with Utrata forceps in a continuous and curvilinear manner. Hydrodissection of the lens was perfor med with BSS on a cannula. The lens could be spun in the capsular bag. The phacoemulsification hand piece was used with a divide- and-conquer technique to remove the nucleus with 12.35 CDE. The I/A carter ndpiece then removed the residual cortical lens material. ProVisc was injected to inflate the capsul ar bag. lens calculation measurements. The planned SN60WF 15.0 diopter lens was then injecte d in the capsular bag. The residual DisCoVisc was removed from the eye with the I/A handpiece. The c orneal incisions were hydrated and no leaks occurred at physiologic pressure around 20 mmHg per palpa tion. The lid speculum was removed and drapes were removed. Maxitrol ointment was placed to the brian face of the operative eye. An adhesive patch and shield was then placed on the operative eye. The p atient was taken to the postoperative area in stable condition. [id number]/[facility] #: [id number]
[2018-09-13] MEDS ORDERED: acetaZOLAMIDE TAB* 250 MG ONE (10:58)
[2018-09-13] MEDS ORDERED: Ketorolac 0.5% OPHTH (NF) 0.5 % 5 ML BTL ONE (10:58)
[2018-09-13] MEDS ORDERED: Tropicamide 1% OPTH.SOL* BTL ONE (10:58)
[2018-09-13] MEDS ORDERED: Neomycin/Polymy/Dex OPHTH.OIN* 3.5 GM ONE (10:58)
[2018-09-13] MEDS ORDERED: Povidone Iodine 5% OPTH* 30 ML BTL ONE (10:58)
[2018-09-13] MEDS ORDERED: Lidocaine 1%* 5 ML VIAL ONE (10:58)
[2018-09-13] MEDS ORDERED: Cyclopentolate 1% OPTH.SOL* 2 ML BTL ONE (10:58)
[2018-09-13] MEDS ORDERED: Phenylephrine 2.5% OPTH.SOL* 2 ML BTL ONE (10:58)
[2018-09-13] MEDS ORDERED: Tetracaine 0.5% OPTH.SOL 4 ML* 1 DROP BTL ONE (10:58)
== END 2018-09-13 08:19 | disposition home or self-care (01) ==
LOC: OREAST 06:19
PROVIDERS: ATTEND Student in an Organized Health Care Education/Training Program
DX: H25.12 Age-related nuclear cataract, left eye (principal); H43.812 Vitreous degeneration, left eye; I10 Essential (primary) hypertension; M10.9 Gout, unspecified; M19.90 Unspecified osteoarthritis, unspecified site
CPT/HCPCS: A9270-GY; J2250; J3010; V2632

== ENCOUNTER 2024-07-04 21:39 | Observation (INO) ==
[2024-07-04 22:09] LABS: ABS Eosinophils 0.1 10^3/uL (0.0-0.5); ABS Lymphocytes 2.2 10^3/uL (1.0-4.8); ABS Monocytes 0.6 10^3/uL (0.0-1.1); ABS Neutrophils 2.8 10^3/uL (1.5-7.6); Eosinophil % 1.8 %; Hematocrit 43.5 % (38-53); Hemoglobin 14.8 g/dL (13.2-16.3); Lymphocyte % 38.4 %; Mean Corpuscular Hemoglobin 33.4 pg (27-33); Mean Corpuscular Volume 98.4 fL (80-97); Mean Platelet Volume 8.1 fL (7.5-11.2); Platelet Count 169 10^3/uL (150-450); Red Blood Count 4.42 10^6/uL (4.06-5.63); Red Cell Distribution Width 13.2 % (12-17); White Blood Count 5.8 10^3/uL (3.6-10.2)
[2024-07-04] MEDS: Iodixanol 320 (CONTRAST) 100 ML SDV IV ONE (22:23)
[2024-07-04 22:24] LABS: Albumin 4.2 g/dL (3.2-5.2); Albumin/Globulin Ratio 1.6 (1-3); Calcium 10.4 mg/dL (8.6-10.3); Creatinine, Serum 0.95 mg/dL (0.67-1.17); Direct Bilirubin 0.1 mg/dL (0.03-0.18); Globulin 2.6 g/dL (2-4); HDL Cholesterol 43.1 mg/dL; Indirect Bilirubin 0.5 mg/dL (0.3-1.0); Potassium 3.7 mmol/L (3.5-5.0); Total Bilirubin 0.6 mg/dL (0.2-1.0); Total Protein 6.8 g/dL (6.4-8.9); eGFR CKD-EPI 85.6 (>60)
[2024-07-04 22:49] LABS: INR 1.21 (0.85-1.14)
[2024-07-04 22:51] LABS: Activated Partial Thrombo Time 39.7 seconds (26.0-38.0)
[2024-07-04] MEDS: Acetaminophen IV 1 GM/100ML 1,000 MG/100 ML BAG IV ONE (22:58)
[2024-07-04] MEDS: Lactated Ringers 1000 ml BAG 1,000 ML IV ONE (23:00)
[2024-07-04] MEDS ORDERED: Sulfur Hexaflouride MICROSPHR 25 MG VIAL IV PRN (23:15)
[2024-07-05 01:03] LABS: Urine Appearance Clear; Urine Bilirubin Negative (Negative); Urine Blood Negative (Negative); Urine Color Light-Yellow; Urine Glucose Negative (Negative); Urine Ketones Negative (Negative); Urine Nitrite Negative (Negative); Urine Protein Negative (Negative); Urine Specific Gravity >1.050 (1.002-1.030); Urine Urobilinogen Negative (Negative); Urine pH 6.5 (5.0-8.0)
[2024-07-05 06:23] LABS: ABS Eosinophils 0.1 10^3/uL (0.0-0.5); ABS Monocytes 0.5 10^3/uL (0.0-1.1); ABS Neutrophils 1.9 10^3/uL (1.5-7.6); Eosinophil % 2.5 %; Hemoglobin 13.3 g/dL (13.2-16.3); Lymphocyte % 43.6 %; Mean Corpuscular Hemoglobin 33.3 pg (27-33); Mean Corpuscular Hgb Conc 34.1 g/dL (31-36); Mean Corpuscular Volume 97.9 fL (80-97); Mean Platelet Volume 8.4 fL (7.5-11.2); Nucleated Red Blood Cells % 0.1 %/100WBC (0.0-0.8); Platelet Count 139 10^3/uL (150-450); Red Blood Count 3.99 10^6/uL (4.06-5.63); Red Cell Distribution Width 13.3 % (12-17); White Blood Count 4.6 10^3/uL (3.6-10.2)
[2024-07-05 06:57] LABS: ALT 15 U/L (7-52); AST 30 U/L (13-39); Albumin 3.4 g/dL (3.2-5.2); Albumin/Globulin Ratio 1.6 (1-3); Alkaline Phosphatase 79 U/L (35-149); Anion Gap 8 mmol/L (2-16); Blood Urea Nitrogen 15 mg/dL (6-24); CO2 Carbon Dioxide 26 mmol/L (22-32); Calcium 9.2 mg/dL (8.6-10.3); Chloride 107 mmol/L (101-111); Creatinine, Serum 0.82 mg/dL (0.67-1.17); Globulin 2.1 g/dL (2-4); Glucose 90 mg/dL (70-100); Magnesium 1.7 mg/dL (1.9-2.7); Potassium 3.6 mmol/L (3.5-5.0); Sodium 141 mmol/L (135-145); Total Bilirubin 0.7 mg/dL (0.2-1.0); Total Protein 5.5 g/dL (6.4-8.9); eGFR CKD-EPI 93.9 (>60)
[2024-07-05] MEDS: CMCS: Dabigatran 150 mg CAP (NF) PO SCH (08:44)
[2024-07-05] MEDS: Magnesium Sulfate 2 gm BAG 2 GM/50 ML BAG IVPB ONE (08:45)
[2024-07-05] MEDS: Aspirin EC 81 mg TAB.EC (enteric coated) PO SCH (10:16)
[2024-07-05 10:22] LABS: TSH Ultra Thyroid Stim Horm 2.36 mcIU/mL (0.34-5.60)
[2024-07-05 10:33] LABS: Folate > 20.00 ng/mL (5.90-24.80)
[2024-07-05 10:34] LABS: Vitamin B12 > 1450 pg/mL (180-914)
[2024-07-06 06:19] LABS: ABS Eosinophils 0.1 10^3/uL (0.0-0.5); ABS Lymphocytes 1.7 10^3/uL (1.0-4.8); ABS Monocytes 0.6 10^3/uL (0.0-1.1); ABS Neutrophils 3.5 10^3/uL (1.5-7.6); Eosinophil % 2.2 %; Hematocrit 38.9 % (38-53); Hemoglobin 13.5 g/dL (13.2-16.3); Lymphocyte % 28.2 %; Mean Corpuscular Hemoglobin 33.8 pg (27-33); Mean Corpuscular Hgb Conc 34.7 g/dL (31-36); Mean Corpuscular Volume 97.3 fL (80-97); Mean Platelet Volume 8.3 fL (7.5-11.2); Platelet Count 140 10^3/uL (150-450); Red Blood Count 3.99 10^6/uL (4.06-5.63); Red Cell Distribution Width 13.2 % (12-17); White Blood Count 5.9 10^3/uL (3.6-10.2)
[2024-07-06 07:07] LABS: Calcium 8.9 mg/dL (8.6-10.3); Creatinine, Serum 0.82 mg/dL (0.67-1.17); Magnesium 1.7 mg/dL (1.9-2.7); Potassium 3.8 mmol/L (3.5-5.0); eGFR CKD-EPI 93.9 (>60)
[2024-07-06] MEDS: Magnesium Sulfate 2 gm BAG 2 GM/50 ML BAG IVPB ONE (08:10)
[2024-07-06] MEDS ORDERED: Polyethylene Glycol 3350 17 GM PACKET PO PRN (08:35)
[2024-07-06 09:54] VITALS: BP 132/89
== END 2024-07-06 12:30 | disposition home or self-care (01) ==
LOC: EDHOLD 21:39 → ED 21:39 → SUATTDRO 23:15 → MEDTELE 07-05 03:01
PROVIDERS: ADMIT Internal Medicine; ATTEND Internal Medicine